=== PATIENT | male | born 1935 | race Caucasian/White ===

== ENCOUNTER → 2016-07-08 | Outpatient (REF) | payer MEDICARE, BC ==
[~2016-07-08] MED LIST: ACET65TA; BACT800T; EUCELOT2; FERROUS SULFATE; LOPR50TA; LOPRESSER; MILKSUS; No Historical Meds; SENO8.6T5; THERGRAN; TUMS; TUMS500C; VICO5TAB; VITA500C
== END ==
LOC: M LAB REF 16:36
PROVIDERS: ATTEND Internal Medicine
DX: M19.90 Unspecified osteoarthritis, unspecified site (principal); I87.2 Venous insufficiency (chronic) (peripheral)

== ENCOUNTER → 2018-11-25 | Outpatient (REF) | payer MEDICARE, BC | LOC: M LAB REF 16:59 | PROVIDERS: ATTEND Internal Medicine | DX: R74.8 Abnormal levels of other serum enzymes (principal) ==

== ENCOUNTER → 2018-11-26 | Outpatient (REF) | payer MEDICARE, BC | LOC: M LAB REF 07:29 | PROVIDERS: ATTEND Internal Medicine | DX: R19.7 Diarrhea, unspecified (principal) ==

== ENCOUNTER 2018-12-18 14:41 | Inpatient (IN) | payer MEDICARE, BC ==
[~2018-12-18] VITALS: Ht 188 cm; Wt 110.6 kg
[2018-12-18] MEDS ORDERED: DILUENT IV ONE (15:15)
[2018-12-18] MEDS ORDERED: NS IV ONE (15:15)
[2018-12-18 15:21] LABS: BASO % 0.2 % (0.0-1.0); EOS % 0.1 % (0.0-3.0); HEMATOCRIT 41.7 % (42.0-52.0); HEMOGLOBIN 13.9 g/dl (13.5-17.5); LYMPH % 2.3 % (24.0-44.0); MEAN CORPUSCULAR HEMOGLOBIN 32.3 pg (27.0-33.0); MEAN CORPUSCULAR HGB CONC 33.3 g/dl (32.0-36.5); MEAN CORPUSCULAR VOLUME 96.8 fl (80.0-96.0); MONO # 0.2 10^3/uL (0.0-0.8); MONO % 2.3 % (0.0-5.0); NEUTROPHILS # 9.1 10^3/uL (1.8-7.7); NEUTROPHILS % 94.7 % (36.0-66.0); PLATELET COUNT, AUTOMATED 156 10^3/uL (150-450); RED BLOOD COUNT 4.31 10^6/uL (4.30-6.10); WHITE BLOOD COUNT 9.6 10^3/uL (4.0-10.0)
[2018-12-18 15:32] LABS: INR 1.2; PROTHROMBIN TIME 14.9 SECONDS (11.8-14.0)
[2018-12-18 15:33] LABS: PARTIAL THROMBOPLASTIN TIME 31.7 SECONDS (25.0-38.4)
[2018-12-18] MEDS ORDERED: cefTRIAXone SOD 2 GM in D5W MINI-BAG PLUS 50 ML IV ONE (15:45)
[2018-12-18 15:46] LABS: LYMPH # 0.2 10^3/uL (1.5-4.5)
--- NOTE | 2018-12-18 15:46 | ECGEPIP ---
[facility] [place] - ED Test Date: 2018-12-18 Pat Name: BLANCA BROCK Department: Room: - Gender: Male Gastroenterology Teacher: yaritza : 1935 Requested By: Tameka Blancas PA-C Order Number: [id number] Reading MD: Megan Murray Measurements Intervals [place] Rate: 102 P: 100 MO: 178 QRS: 48 QRSD: 88 T: 56 QT: 305 QTc: 397 Interpretive Statements SINUS TACHYCARDIA WITH FREQUENT SUPRAVENTRICULAR PREMATURE COMPLEXES ABNORMAL RHYTHM ECG INCREASED RATE 12/10/14 Electronically Signed on 12-18-2018 15:46:00 EDT by Megan Murray
[2018-12-18 15:47] LABS: ALBUMIN 2.8 GM/DL (3.2-5.2); ALT/SGPT 55 U/L (12-78); AMYLASE 24 U/L (25-115); BILIRUBIN,DIRECT 5.4 MG/DL (0.0-0.2); BILIRUBIN,TOTAL 6.1 MG/DL (0.2-1.0); BLOOD UREA NITROGEN 19 MG/DL (7-18); CALCIUM LEVEL 9.1 MG/DL (8.8-10.2); CARBON DIOXIDE LEVEL 23 MEQ/L (21-32); CHLORIDE LEVEL 108 MEQ/L (98-107); CK-MB VALUE MASS < 1.0 NG/ML (<3.6); CPK CREATINE PHOSPHOKINASE 20 U/L (39-308); CREATININE FOR GFR 1.23 MG/DL (0.70-1.30); GLOMERULAR FILTRATION RATE > 60.0 (>35); GLUCOSE, FASTING 79 MG/DL (70-100); POTASSIUM SERUM 3.6 MEQ/L (3.5-5.1); SODIUM LEVEL 139 MEQ/L (136-145); TOTAL PROTEIN 6.3 GM/DL (6.4-8.2); TROPONIN I < 0.02 NG/ML (< 0.10)
--- NOTE | 2018-12-18 15:51 | REP ---
Clinical: Sepsis. Shock. Comparison: 12/10/2014. Findings: Examination is limited by portable technique and underpenetration. Stable cardiomegaly is again appreciated along with stable COPD/emphysematous disease and chronic interstitial changes. No focal consolidation. No effusion. No pneumothorax. Skeletal structures demonstrate degenerative changes primarily involving the right shoulder and thoracic spine. Impression: Chronic stable cardiomegaly and diffuse chronic changes. No obvious acute process. Electronically Signed by Se Yap MD 12/18/2018 03:43 P
[2018-12-18] MEDS ORDERED: FINA5TAB2 PO (16:02)
[2018-12-18] MEDS ORDERED: ACET-897 PO (16:02)
[2018-12-18] MEDS ORDERED: D-10TAB3 PO (16:02)
[2018-12-18] MEDS ORDERED: OXYB10TA PO (16:02)
[2018-12-18] MEDS ORDERED: TUMS500C PO (16:02)
[2018-12-18] MEDS ORDERED: FLOM0.4C39 PO (16:02)
[2018-12-18] MEDS ORDERED: VITMTA PO (16:02)
[2018-12-18] MEDS ORDERED: ISOVUE-370 76% 100ML VIAL (Q9967) As Ordered ONE (16:11)
--- NOTE | 2018-12-18 16:50 | REP ---
Clinical: Jaundice and history of hepatitis. Technique: Axial contrast enhanced images from the lung bases to the pubic symphysis using 100 ml Isovue 370 intravenous contrast material with precontrast and delayed images of the abdomen. Comparison: 12/01/2018. Findings: Extensive intrahepatic and extrahepatic biliary ductal dilatation is appreciated and obstructing material is identified within the distal common bile duct. The gallbladder is distended and mild pericholecystic fluid and inflammatory changes are also noted. Liver includes stable 1 cm cyst in the medial left lobe adjacent to the gallbladder fossa. Spleen, left adrenal gland appear normal. 2.8 cm cystic lesion in the mid pancreatic body cannot be excluded. Right adrenal gland demonstrates atrophy and calcification suggesting prior insult. Right kidney demonstrates medial cortical scarring with calcifications and 1.7 cm enhancing round lesion warranting further investigation to exclude renal mass. The enteric system is without obstruction or acute inflammatory process. Diffuse colonic and sigmoid diverticulosis noted without acute diverticulitis. Evaluation of the pelvis demonstrates relatively normal bladder. The prostate gland is mildly enlarged and demonstrates mass effect at the base of the bladder. No ascites. No free air. Scattered mesenteric and retroperitoneal lymph nodes are nonspecific. IVC filter identified. Atherosclerotic changes of the aorta and vasculature without aneurysm. Osseous structures demonstrate age-related degenerative changes. Lung bases demonstrate chronic COPD/emphysematous disease and bibasilar scarring. Impression: 1. Increasing intrahepatic and extrahepatic biliary ductal dilatation with obstructing material identified in the common bile duct. Differential diagnosis includes choledocholithiasis and possible biliary neoplasm. 2. Cystic mass in the mid body of the pancreas cannot exclude neoplasm. 3. Enhancing right renal lesion suspicious for neoplasm. 4. Diverticulosis without acute diverticulitis. 5. Nonspecific abdominal and retroperitoneal lymph nodes. 6. Further chronic changes as above. No ascites. Electronically Signed by Se Yap MD 12/18/2018 04:41 P
--- NOTE | 2018-12-18 18:48 | REPVR ---
EXAM: US Abdomen Limited, Right Upper Quadrant EXAM DATE/TIME: 12/18/2018 4:56 PM CLINICAL HISTORY: 83 years old, male; Other: Jaundice, hepatitis TECHNIQUE: Imaging protocol: Real-time ultrasound of the abdomen with image documentation. Examination was focused on the right upper quadrant. COMPARISON: CT ABD PELVIS W/O FOL BY WALLACE 12/18/2018 4:17 PM FINDINGS: Liver: There is the right hepatic lobe cyst adjacent to the gallbladder fossa measuring 1.5 cm. The intrahepatic bile ducts are dilated. On a single image the liver contour appears slightly nodular of uncertain significance. Gallbladder: The gallbladder is distended measuring 10.7 x 5.9 x 5.0 cm. Gallbladder sludge as well as echogenic gallstones. There is irregular gallbladder wall thickening. Gallbladder wall measurements of 1.2 and 0.7 cm. Common bile duct: The common bile duct is dilated measuring up to 14.5 mm. Pancreas: The pancreas was not visualized due to overlying bowel gas. Right kidney: Right kidney measures 11.7 cm in length. No hydronephrosis. IMPRESSION: 1. Irregular gallbladder wall thickening. Cholecystitis is possible. Gallbladder neoplasm or cholecystosis are other considerations. Please correlate with the clinical scenario. 2. Gallbladder distention with sludge as well as stones. 3. Significant biliary dilatation again demonstrated. 4. Suggest MRCP for further evaluation, as needed. Electronically signed by: Norma Livingston On 12/18/2018 18:47:46 PM
[2018-12-18] MEDS ORDERED: NS 1,000 ML IV ONE (20:00)
[2018-12-18] MEDS ORDERED: IBUPROFEN 600 MG TAB PO PRN (20:00)
[2018-12-18 20:23] LABS: APPEARANCE, URINE CLEAR (CLEAR); BACTERIA, URINE AUTO NEGATIVE (NEGATIVE); BILIRUBIN, URINE AUTO 1+ (NEGATIVE); BLOOD, URINE BLOOD NEGATIVE (NEGATIVE); COLOR, URINE AMBER (YELLOW); GLUCOSE, URINE (UA) AUTO NEGATIVE (NEGATIVE); KETONE, URINE AUTO NEGATIVE (NEGATIVE); LEUKOCYTE ESTERASE, URINE AUTO NEGATIVE (NEGATIVE); MUCUS, URINE SMALL (NEGATIVE); NITRITE, URINE AUTO NEGATIVE (NEGATIVE); PROTEIN, URINE AUTO NEGATIVE (NEGATIVE); RBC, URINE AUTO 2 /HPF (0-3); SPECIFIC GRAVITY URINE AUTO 1.056 (1.002-1.035); SQUAMOUS EPITHELIAL CELL UR AU 0 /HPF (0-6); WBC, URINE AUTO 3 /HPF (0-3)
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
[2018-12-18 22:00] VITALS: BP 132/86
[2018-12-18] MEDS: D5W/0.9% SODIUM CHLORIDE 1,000 ML IV SCH (22:13)
[2018-12-18] MEDS: PIPERACILLIN/TAZOBACTAM SOD 3.375 GM in D5W MINI-BAG PLUS 50 ML IV SCH (22:23)
[2018-12-18] MEDS: FINASTERIDE 5 MG TAB PO SCH (22:23)
[2018-12-18 23:59] VITALS: BP 126/67
[2018-12-19] VITALS (8 sets, daily range): BP systolic 114–146; BP diastolic 57–76
[2018-12-19] MEDS: PIPERACILLIN/TAZOBACTAM SOD 3.375 GM in D5W MINI-BAG PLUS 50 ML IV SCH ×4 (04:57→22:18)
[2018-12-19 07:45] LABS: BASO % 0.2 % (0.0-1.0); EOS % 0.1 % (0.0-3.0); LYMPH # 1.3 10^3/uL (1.5-4.5); LYMPH % 9.3 % (24.0-44.0); MEAN CORPUSCULAR HEMOGLOBIN 32.9 pg (27.0-33.0); MEAN CORPUSCULAR HGB CONC 33.1 g/dl (32.0-36.5); MEAN CORPUSCULAR VOLUME 99.4 fl (80.0-96.0); MONO # 0.9 10^3/uL (0.0-0.8); MONO % 6.5 % (0.0-5.0); NEUTROPHILS % 83.3 % (36.0-66.0); PLATELET COUNT, AUTOMATED 149 10^3/uL (150-450); RED BLOOD COUNT 3.62 10^6/uL (4.30-6.10); WHITE BLOOD COUNT 14.4 10^3/uL (4.0-10.0)
[2018-12-19 07:48] LABS: HEMOGLOBIN 11.9 g/dl (13.5-17.5)
[2018-12-19 07:58] LABS: ALBUMIN 2.2 GM/DL (3.2-5.2); ALT/SGPT 47 U/L (12-78); BLOOD UREA NITROGEN 17 MG/DL (7-18); CALCIUM LEVEL 8.6 MG/DL (8.8-10.2); CARBON DIOXIDE LEVEL 21 MEQ/L (21-32); CHLORIDE LEVEL 115 MEQ/L (98-107); CREATININE FOR GFR 0.91 MG/DL (0.70-1.30); GLOMERULAR FILTRATION RATE > 60.0 (>35); GLUCOSE, FASTING 102 MG/DL (70-100); SODIUM LEVEL 141 MEQ/L (136-145); TOTAL PROTEIN 5.8 GM/DL (6.4-8.2)
[2018-12-19] MEDS: D5W/0.9% SODIUM CHLORIDE 1,000 ML IV SCH ×2 (10:11→20:07)
[2018-12-19] MEDS ORDERED: ISOVUE-300 61% 50ML VIAL (Q9967) As Ordered ONE ×2 (16:26→17:13)
[2018-12-19] MEDS ORDERED: PHENYLEPHRINE INJ 10MG/ML VIAL (J2370) As Ordered ONE (17:18)
[2018-12-19] MEDS ORDERED: GLUCAGON FOR INJ 1 MG VIAL (J1610) As Ordered ONE (17:25)
--- NOTE | 2018-12-19 17:44 | IPNPDOC ---
Subjective Date Seen The patient was seen on 12/19/18. Subjective Chief Complaint/HPI 83m with hx of bph who presented with rigors and was found to have obstructive jaundice pt without complaint a full ROS was performed and negative except as above Objective Physical Examination General Exam: Positive: Alert, Cooperative, No Acute Distress Eye Exam: Positive: PERRLA, Conjunctiva & lids normal, EOMI; Negative: Sclera icteric ENT Exam: Positive: Atraumatic, Mucous membr. moist/pink, Pharynx Normal Neck Exam: Positive: Supple; Negative: JVD, thyromegaly Chest Exam: Positive: Clear to auscultation, Normal air movement Heart Exam: Positive: Rate Normal, Regular Rhythm, Normal S1, Normal S2; Negative: Murmurs, Rubs Telemetry: Positive: No significant arrhythmia Abdomen Exam: Positive: Normal bowel sounds, Soft; Negative: Tenderness, Hepatospenomegaly Extremity Exam: Negative: Clubbing, Cyanosis, Edema Assessment /Plan Assessment 83m p/w obstructive jaundice biliary obstruction concern for malignancy ERCP today on zosyn bili improved today will check ca 19-9 if no pathology established from ercp may need biopsy of pancreatic lesion bph continue flomax Plan/VTE VTE Prophylaxis Ordered?: Yes VS, I&O, 24H, Fishbone Vital Signs/I&O Vital Signs Date Time Temp Pulse Resp B/P (MAP) Pulse Ox O2 Delivery O2 Flow Rate FiO2 12/19/18 12:00 96.5 50 18 136/65 (88) 96 12/18/18 21:44 Room Air I&O- Last 24 Hours up to 6 AM 12/19/18 06:00 Intake Total 4960 ml Output Total 1150 ml Balance 3810 ml Laboratory Data 24H LABS Laboratory Tests 2 12/18/18 20:01: Urine Appearance CLEAR, Urine Color JOANNA, Urine pH 5.0, Urine Specific [place] 1.056, Urine Protein NEGATIVE, Urine Glucose (UA) NEGATIVE, Urine Ketones NEGATIVE, Urine Urobilinogen 2.0H, Urine Bilirubin 1+H, Urine Leukocyte Esterase NEGATIVE, Urine Blood NEGATIVE, Urine Nitrite NEGATIVE, Urine WBC (Auto) 3, Urine RBC (Auto) 2, Urine Hyaline Casts (Auto) 0, Urine Bacteria (Auto) NEGATIVE, Urine Squamous Epithelial Cells 0, Urine Mucus (Auto) SMALL, Urine Sperm (Auto) 12/18/18 20:02: Lactic Acid Followup at 4 Hours 1.3 12/19/18 07:04: Immature Granulocyte % (Auto) 0.6, White Blood Count 14.4H, Red Blood Count 3.62L, Hemoglobin 11.9#L, Hematocrit 36.0L, Mean Corpuscular Volume 99.4H, Mean Corpuscular Hemoglobin 32.9, Mean Corpuscular Hemoglobin Concent 33.1, Red Cell Distribution Width 14.7H, Platelet Count 149L, Neutrophils (%) (Auto) 83.3H, Lymphocytes (%) (Auto) 9.3L, Monocytes (%) (Auto) 6.5H, Eosinophils (%) (Auto) 0.1, Basophils (%) (Auto) 0.2, Neutrophils # (Auto) 12.0H, Lymphocytes # (Auto) 1.3L, Monocytes # (Auto) 0.9H, Eosinophils # (Auto) 0.0, Basophils # (Auto) 0.0, Nucleated Red Blood Cells % (auto) 0.0, Anion Gap 5L, Glomerular Filtration Rate > 60.0, Blood Urea Nitrogen 17, Creatinine 0.91, Sodium Level 141, Potassium Level 4.0, Chloride Level 115H, Carbon Dioxide Level 21, Calcium Level 8.6L, Aspartate Amino Transf (AST/SGOT) 58H, Alanine Aminotransferase (ALT/SGPT) 47, Alkaline Phosphatase 308H, Total Bilirubin 3.0#H, Total Protein 5.8L, Albumin 2.2#L, C-Reactive Protein, Quantitative 18.60H, Albumin/Globulin Ratio 0.61L CBC/BMP Laboratory Tests 12/19/18 07:04 Red Blood Count 3.62 L, Mean Corpuscular Volume 99.4 H, Mean Corpuscular Hemoglobin 32.9, Mean Corpuscular Hemoglobin Concent 33.1, Red Cell Distribution Width 14.7 H, Neutrophils (%) (Auto) 83.3 H, Lymphocytes (%) (Auto) 9.3 L, Monocytes (%) (Auto) 6.5 H, Eosinophils (%) (Auto) 0.1, Basophils (%) (Auto) 0.2, Neutrophils # (Auto) 12.0 H, Lymphocytes # (Auto) 1.3 L, Monocytes # (Auto) 0.9 H, Eosinophils # (Auto) 0.0, Basophils # (Auto) 0.0, Calcium Level 8.6 L, Aspartate Amino Transf (AST/SGOT) 58 H, Alanine Aminotransferase (ALT/SGPT) 47, Alkaline Phosphatase 308 H, Total Bilirubin 3.0 #H, Total Protein 5.8 L, Albumin 2.2 #L Microbiology Microbiology 12/18/18 Blood Culture - Preliminary, Resulted No growth after 24 hours . All specim... 12/18/18 Blood Culture - Preliminary, Resulted No growth after 24 hours . All specim... RAGHAVENDRA BONNER MD Dec 19, 2018 17:44
[2018-12-19] MEDS ORDERED: SUGAMMADEX SODIUM 500 MG/5 ML VIAL (BRIDION) As Ordered ONE (18:28)
[2018-12-19] MEDS ORDERED: ROCURONIUM BROMIDE 50 MG/5 ML VIAL As Ordered ONE (18:28)
[2018-12-19] MEDS ORDERED: LIDOCAINE 2% INJ 100 MG/5 ML SDV (FOR ANES.) As Ordered ONE (18:28)
[2018-12-19] MEDS ORDERED: fentaNYL 100 MCG/2 ML INJECTION (J3010) As Ordered ONE (18:28)
[2018-12-19] MEDS ORDERED: ONDANSETRON 4MG/2ML VIAL (J2405) As Ordered ONE (18:28)
[2018-12-19] MEDS ORDERED: PROPOFOL 200 MG/20 ML VIAL As Ordered ONE (18:28)
[2018-12-19] MEDS ORDERED: dexameTHASONE 4 MG/ML 1ML VIAL (J1100) As Ordered ONE (18:28)
[2018-12-19] MEDS ORDERED: ONDANSETRON 4MG/2ML VIAL (J2405) IV PRN (18:30)
[2018-12-19] MEDS ORDERED: oxyCODONE 5MG TAB PO PRN (18:30)
[2018-12-19] MEDS ORDERED: fentaNYL 100 MCG/2 ML INJECTION (J3010) IV PRN (18:30)
[2018-12-19] MEDS ORDERED: LR 1,000 ML IV SCH (18:30)
[2018-12-19] MEDS: URSODIOL 300 MG CAP PO SCH (20:10)
[2018-12-19] MEDS: FINASTERIDE 5 MG TAB PO SCH (20:10)
[2018-12-19] MEDS: TAMSULOSIN 0.4 MG CAP PO SCH (20:10)
[2018-12-20] MEDS: PIPERACILLIN/TAZOBACTAM SOD 3.375 GM in D5W MINI-BAG PLUS 50 ML IV SCH ×4 (03:44→21:55)
[2018-12-20 04:00] VITALS: BP 124/67
[2018-12-20 05:55] LABS: BASO % 0.2 % (0.0-1.0); HEMATOCRIT 37.2 % (42.0-52.0); HEMOGLOBIN 12.3 g/dl (13.5-17.5); LYMPH % 9.4 % (24.0-44.0); MEAN CORPUSCULAR HEMOGLOBIN 32.5 pg (27.0-33.0); MEAN CORPUSCULAR HGB CONC 33.1 g/dl (32.0-36.5); MEAN CORPUSCULAR VOLUME 98.2 fl (80.0-96.0); MONO # 0.7 10^3/uL (0.0-0.8); MONO % 6.9 % (0.0-5.0); NEUTROPHILS # 8.8 10^3/uL (1.8-7.7); NEUTROPHILS % 83.1 % (36.0-66.0); PLATELET COUNT, AUTOMATED 172 10^3/uL (150-450); RED BLOOD COUNT 3.79 10^6/uL (4.30-6.10); WHITE BLOOD COUNT 10.6 10^3/uL (4.0-10.0)
[2018-12-20 06:14] LABS: ALBUMIN 2.2 GM/DL (3.2-5.2); ALT/SGPT 47 U/L (12-78); BILIRUBIN,TOTAL 1.8 MG/DL (0.2-1.0); BLOOD UREA NITROGEN 18 MG/DL (7-18); CALCIUM LEVEL 8.6 MG/DL (8.8-10.2); CARBON DIOXIDE LEVEL 23 MEQ/L (21-32); CHLORIDE LEVEL 118 MEQ/L (98-107); CREATININE FOR GFR 0.83 MG/DL (0.70-1.30); GLOMERULAR FILTRATION RATE > 60.0 (>35); GLUCOSE, FASTING 115 MG/DL (70-100); POTASSIUM SERUM 4.3 MEQ/L (3.5-5.1); SODIUM LEVEL 145 MEQ/L (136-145); TOTAL PROTEIN 6.1 GM/DL (6.4-8.2)
[2018-12-20 08:00] VITALS: BP 148/70
[2018-12-20] MEDS: URSODIOL 300 MG CAP PO SCH ×2 (08:32→21:56)
[2018-12-20] MEDS: TAMSULOSIN 0.4 MG CAP PO SCH (08:32)
[2018-12-20] MEDS: D5W/0.9% SODIUM CHLORIDE 1,000 ML IV SCH ×3 (08:33→21:55)
[2018-12-20 08:51] LABS: LIPASE 124 U/L (73-393)
--- NOTE | 2018-12-20 09:06 | IPNPDOC ---
Text Note Date of Service The patient was seen on 12/20/18. NOTE Subjective: Patient seen and examined at bedside. No acute overnight events reported. No new medical complaints this morning. 8 beats VT noted, patient asymptomatic. Objective: General: NAD, lying comfortably in bed HEENT: NC/AT, EOMI, PERRL Lungs: CTA B/L Heart: +S1S2, RRR Abd: soft, NT, +BS A/P: 83 yo male for choledocholithiasis s/p ERCP POD #1 #biliary obstruction - choledocholithiasis vs neoplasm - s/p ERCP - watch for pancreatitis - lipase WNL, no symptoms - follow as per GI - concern for malignancy - zosyn - CEA, ca 19-9 pending - if no pathology established from ercp may need biopsy of pancreatic lesion #bph - continue flomax #pancreatic/renal lesions - concerns for possible malignancy #DVT prophylaxis Dispo: PT, GI f/u VS,Fishbone, I+O VS, Fishbone, I+O Laboratory Tests 12/20/18 05:26 Red Blood Count 3.79 L, Mean Corpuscular Volume 98.2 H, Mean Corpuscular Hemoglobin 32.5, Mean Corpuscular Hemoglobin Concent 33.1, Red Cell Distribution Width 14.9 H, Neutrophils (%) (Auto) 83.1 H, Lymphocytes (%) (Auto) 9.4 L, Monocytes (%) (Auto) 6.9 H, Eosinophils (%) (Auto) 0.0, Basophils (%) (Auto) 0.2, Neutrophils # (Auto) 8.8 H, Lymphocytes # (Auto) 1.0 L, Monocytes # (Auto) 0.7, Eosinophils # (Auto) 0.0, Basophils # (Auto) 0.0, Calcium Level 8.6 L, Aspartate Amino Transf (AST/SGOT) 48 H, Alanine Aminotransferase (ALT/SGPT) 47, Alkaline Phosphatase 285 H, Total Bilirubin 1.8 H, Total Protein 6.1 L, Albumin 2.2 L Vital Signs Date Time Temp Pulse Resp B/P (MAP) Pulse Ox O2 Delivery O2 Flow Rate FiO2 12/20/18 08:00 97.1 60 20 148/70 (96) 99 12/18/18 21:44 Room Air I&O- Last 24 Hours up to 6 AM 12/20/18 06:00 Intake Total 3420 ml Output Total 1100 ml Balance 2320 ml ELLIOTT WAHL MD Dec 20, 2018 09:06
--- NOTE | 2018-12-20 09:14 | REP ---
C-ARM VIEWS DURING ERCP: Multiple C-arm views are performed during ERCP. There is injection of contrast into a dilated common bile duct which contains a calculus. Contrast flows into the gallbladder and also opacifies dilated intrahepatic ducts. Catheter manipulation is performed. A common bile duct stent is placed distally. 8 minutes 57 seconds fluoroscopy time utilized. Electronically Signed by Bryn Davis MD 12/20/2018 07:15 P
[2018-12-20 10:26] LABS: CA19-9 TUMOR MARKER,CARBOHYDRA 451.6 U/ML (<35.0)
[2018-12-20 12:00] VITALS: BP 122/70
[2018-12-20 16:00] VITALS: BP 159/73
[2018-12-20 20:00] VITALS: BP 153/79
[2018-12-20 20:15] VITALS: BP 132/74
[2018-12-20] MEDS: FINASTERIDE 5 MG TAB PO SCH (21:55)
[2018-12-21 04:00] VITALS: BP 142/67
[2018-12-21] MEDS: PIPERACILLIN/TAZOBACTAM SOD 3.375 GM in D5W MINI-BAG PLUS 50 ML IV SCH ×2 (04:42→08:24)
[2018-12-21 06:07] LABS: BASO % 0.5 % (0.0-1.0); EOS # 0.2 10^3/uL (0.0-0.50); HEMATOCRIT 36.1 % (42.0-52.0); HEMOGLOBIN 11.9 g/dl (13.5-17.5); LYMPH # 1.7 10^3/uL (1.5-4.5); LYMPH % 20.2 % (24.0-44.0); MEAN CORPUSCULAR HEMOGLOBIN 32.6 pg (27.0-33.0); MEAN CORPUSCULAR VOLUME 98.9 fl (80.0-96.0); MONO # 0.6 10^3/uL (0.0-0.8); MONO % 6.8 % (0.0-5.0); NEUTROPHILS # 5.9 10^3/uL (1.8-7.7); NEUTROPHILS % 70.3 % (36.0-66.0); PLATELET COUNT, AUTOMATED 148 10^3/uL (150-450); RED BLOOD COUNT 3.65 10^6/uL (4.30-6.10); WHITE BLOOD COUNT 8.4 10^3/uL (4.0-10.0)
[2018-12-21 06:31] LABS: ALBUMIN 1.9 GM/DL (3.2-5.2); ALT/SGPT 39 U/L (12-78); BILIRUBIN,TOTAL 1.4 MG/DL (0.2-1.0); BLOOD UREA NITROGEN 15 MG/DL (7-18); CALCIUM LEVEL 8.6 MG/DL (8.8-10.2); CARBON DIOXIDE LEVEL 21 MEQ/L (21-32); CHLORIDE LEVEL 120 MEQ/L (98-107); CREATININE FOR GFR 0.81 MG/DL (0.70-1.30); GLOMERULAR FILTRATION RATE > 60.0 (>35); GLUCOSE, FASTING 97 MG/DL (70-100); LIPASE 118 U/L (73-393); POTASSIUM SERUM 3.9 MEQ/L (3.5-5.1); SODIUM LEVEL 146 MEQ/L (136-145); TOTAL PROTEIN 5.4 GM/DL (6.4-8.2)
[2018-12-21 08:00] VITALS: BP 137/65
[2018-12-21] MEDS: URSODIOL 300 MG CAP PO SCH (08:24)
[2018-12-21] MEDS: TAMSULOSIN 0.4 MG CAP PO SCH (08:24)
[2018-12-21] MEDS: D5W/0.9% SODIUM CHLORIDE 1,000 ML IV SCH (08:26)
--- NOTE | 2018-12-21 15:49 | DS.PDOC ---
Discharge Summary General Date of Admission Dec 18, 2018 at 19:56 Date of Discharge 12/21/18 Specialist/Consultants Involve: BUD MOTT MD Discharge Summary PROCEDURES PERFORMED DURING STAY: ERCP DISCHARGE DIAGNOSES: 1. biliary obstruction 2. pancreatic mass 3. bph COMPLICATIONS/CHIEF COMPLAINT: Hypotension, Jaundice. HISTORY OF PRESENT ILLNESS: 83 year old male came to the ED fro extreme weakness and shakiness. He was found to be hypotensive at 81/45. He was also noted to have painless jaundice, He was not febrile. As per he has lost 35 lbs between July and September 2018. He has also been having alteration of bowel habits with days of loose stools requiring imodium followed by constipation requiring prune juice for at least 2 months. He went to see his PMD 2 weeks ago because he has been very weak and will shakes. He had a CT abdomen done then and was told that he has a spot in pancreas, aspot in liver and a spot in right kidney . He has been referred to a pancreatic surgeon in [place] and has an appointment on 01/05/19. CT today in our ED showed Extensive intrahepatic and extrahepatic biliary ductal dilatation is appreciated and obstructing material is identified within the distal common bile duct. The gallbladder is distended and mild pericholecystic fluid and inflammatory changes are also noted. Liver includes stable 1 cm cyst in the medial left lobe adjacent to the gallbladder fossa. Spleen, left adrenal gland appear normal. 2.8 cm cystic lesion in the mid pancreatic body cannot be excluded. Right adrenal gland demonstrates atrophy and calcification suggesting prior insult. Right kidney demonstrates medial cortical scarring with calcifications and 1.7 cm enhancing round lesion warranting further investigation to exclude renal mass. There are mesentric and retroperitoneal lymphnodes. There is also an IVC filter present and Emphysematous changes in the lung bases. Patient admitted for obstructive jaundice due to CBD obstruction. HOSPITAL COURSE: . DISCHARGE MEDICATIONS: Please see below. ALLERGIES: Please see below. PHYSICAL EXAMINATION ON DISCHARGE: VITAL SIGNS: Please see below. GENERAL: HEENT: NECK: CARDIOVASCULAR EXAMINATION: RESPIRATORY EXAMINATION: ABDOMINAL EXAMINATION: EXTREMITIES: SKIN: NEUROLOGICAL EXAMINATION: PSYCHIATRIC EXAMINATION: LABORATORY DATA: Please see below. IMAGING: PROGNOSIS: ACTIVITY: [As tolerated]. DIET: DISCHARGE PLAN: DISPOSITION: . DISCHARGE INSTRUCTIONS: 1. . ITEMS TO FOLLOWUP ON ON OUTPATIENT: 1. . DISCHARGE CONDITION: [Stable]. TIME SPENT ON DISCHARGE: Greater than minutes. Vital Signs/I&Os Vital Signs Date Time Temp Pulse Resp B/P (MAP) Pulse Ox O2 Delivery O2 Flow Rate FiO2 12/21/18 08:00 97.6 55 20 137/65 (89) 100 12/18/18 21:44 Room Air I&O- Last 24 Hours up to 6 AM 12/21/18 06:00 Intake Total 3450 ml Output Total 775 ml Balance 2675 ml Laboratory Data Labs 24H Laboratory Tests 2 12/21/18 05:40: Immature Granulocyte % (Auto) 0.2, White Blood Count 8.4, Red Blood Count 3.65L, Hemoglobin 11.9L, Hematocrit 36.1L, Mean Corpuscular Volume 98.9H, Mean Corpuscular Hemoglobin 32.6, Mean Corpuscular Hemoglobin Concent 33.0, Red Cell Distribution Width 14.8H, Platelet Count 148L, Neutrophils (%) (Auto) 70.3H, Lymphocytes (%) (Auto) 20.2L, Monocytes (%) (Auto) 6.8H, Eosinophils (%) (Auto) 2.0, Basophils (%) (Auto) 0.5, Neutrophils # (Auto) 5.9, Lymphocytes # (Auto) 1.7, Monocytes # (Auto) 0.6, Eosinophils # (Auto) 0.2, Basophils # (Auto) 0.0, Nucleated Red Blood Cells % (auto) 0.0, Anion Gap 5L, Glomerular Filtration Rate > 60.0, Blood Urea Nitrogen 15, Creatinine 0.81, Sodium Level 146H, Potassium Level 3.9, Chloride Level 120H, Carbon Dioxide Level 21, Calcium Level 8.6L, Aspartate Amino Transf (AST/SGOT) 32, Alanine Aminotransferase (ALT/SGPT) 39, Alkaline Phosphatase 235H, Total Bilirubin 1.4H, Total Protein 5.4L, Albumin 1.9L, Albumin/Globulin Ratio 0.54L, Lipase 118 CBC/BMP Laboratory Tests 12/21/18 05:40 Red Blood Count 3.65 L, Mean Corpuscular Volume 98.9 H, Mean Corpuscular Hemoglobin 32.6, Mean Corpuscular Hemoglobin Concent 33.0, Red Cell Distribution Width 14.8 H, Neutrophils (%) (Auto) 70.3 H, Lymphocytes (%) (Auto) 20.2 L, Monocytes (%) (Auto) 6.8 H, Eosinophils (%) (Auto) 2.0, Basophils (%) (Auto) 0.5, Neutrophils # (Auto) 5.9, Lymphocytes # (Auto) 1.7, Monocytes # (Auto) 0.6, Eosinophils # (Auto) 0.2, Basophils # (Auto) 0.0, Calcium Level 8.6 L, Aspartate Amino Transf (AST/SGOT) 32, Alanine Aminotransferase (ALT/SGPT) 39, Alkaline Phosphatase 235 H, Total Bilirubin 1.4 H, Total Protein 5.4 L, Albumin 1.9 L Microbiology Microbiology 12/18/18 Blood Culture - Preliminary, Resulted No Growth after 72 hours. All specime... 12/18/18 Blood Culture - Preliminary, Resulted No Growth after 72 hours. All specime... Discharge Medications Scheduled Acetaminophen (Tylenol Extra Strength) 500 Mg Tablet, 1,000 MG PO BID, (Reported) Calcium Carbonate (Tums) 200 Mg Tab.chew, 1,000 MG PO BID, (Reported) Cholecalciferol (Vitamin D3) (Vitamin D3) 1,000 Unit Tablet, 1,000 UNIT PO GINA Y, (Reported) Finasteride (Finasteride) 5 Mg Tablet, 5 MG PO QHS, (Reported) Multivitamins (Thera M Plus Tablet) 1 Each Tablet, 1 TAB PO DAILY, (Reported) Oxybutynin Chloride (Oxybutynin Chloride ER) 10 Mg Tab.er.24, 10 MG PO DAILY, (Reported) Tamsulosin HCl (Flomax) 0.4 Mg Capsule, 0.4 MG PO DAILY, (Reported) Allergies Coded Allergies: aspirin (Verified Allergy, Unknown, 12/18/18) PATIENT AND DO NOT BELIEVE THIS IS AN ALLERGY. ELLIOTT WAHL MD Dec 21, 2018 15:49
== END 2018-12-21 17:00 | disposition home or self-care (01) | DRG 446 ==
LOC: M ED 14:41 → M ED INP 19:56 → M PCU 21:55
PROVIDERS: ADMIT Internal Medicine Nephrology; ATTEND Hospitalist
PROC: 0F798DZ Dilation of Common Bile Duct with Intraluminal Device, Via Natural or Artificial Opening Endoscopic (ICD-10-PCS; principal; 2018-12-19 16:00)
DX: K80.51 Calculus of bile duct without cholangitis or cholecystitis with obstruction (principal); I95.9 Hypotension, unspecified; E86.0 Dehydration; K86.89 Other specified diseases of pancreas; Z79.899 Other long term (current) drug therapy; Z88.6 Allergy status to analgesic agent; M19.90 Unspecified osteoarthritis, unspecified site; N40.0 Benign prostatic hyperplasia without lower urinary tract symptoms

== ENCOUNTER → 2019-01-27 | Outpatient (REF) | payer MEDICARE, BC ==
[~2019-01-27] MED LIST changes: +ACET-897 PO; +D-10TAB3 PO; +FINA5TAB2 PO; +FLOM0.4C39 PO; +OXYB10TA2 PO; +TUMS500C PO; +VITMTA PO
== END ==
LOC: M LAB REF 16:46
PROVIDERS: ATTEND Internal Medicine
DX: C25.3 Malignant neoplasm of pancreatic duct (principal)

== ENCOUNTER → 2019-12-06 | Outpatient (REF) | payer MEDICARE, BC ==
[~2019-12-06] MED LIST changes: -OXYB10TA2 PO; +OXYB10TA23 PO
[2019-12-06 13:19] LABS: CREATININE FOR GFR 1.15 MG/DL (0.70-1.30); GLOMERULAR FILTRATION RATE > 60.0 (>35)
== END ==
LOC: M LABDRWAD 12:27
PROVIDERS: ATTEND Radiology Radiation Oncology
DX: C22.1 Intrahepatic bile duct carcinoma (principal)

== ENCOUNTER → 2019-12-12 | Outpatient (CLI) | payer MEDICARE, BC ==
[~2019-12-12] MED LIST changes: +GASTROGRAFIN SOLUTION 30ML (Q9963) As Ordered ONE; +ISOVUE-370 76% 100ML VIAL As Ordered ONE
--- NOTE | 2020-02-05 09:35 | REP ---
CT OF THE ABDOMEN WITH IV AND ORAL CONTRAST: HISTORY: Cholangiocarcinoma, biliary tract. CONTRAST DOSE: 100 ml of intravenous Isovue 370 is administered. COMPARISON: CT study from 12/18/18. Report was delayed due to a malware attack on the facility. FINDINGS: Preliminary digital bingo usher radiograph demonstrates a Madhuri vena cava filter, clips in the right upper quadrant, vascular calcification and a normal bowel gas pattern. The lung bases are essentially clear. There are multiple old healed rib fractures. There is some bibasilar linear fibrosis. No focal hepatic mass lesion is seen. There is pneumobilia noted consistent with prior instrumentation or anastomosis. The gallbladder is surgically absent. The spleen is normal in size, homogeneous in texture. There is embolization coil material visible in the right renal hilus and there is significant atrophy of the posterior cortex of the right kidney. This is unchanged. There is a stable 1.7 cm nodule in the posterior aspect of the right kidney, unchanged from the comparison study of 12/18/18. There are 2 small intrarenal calculi in the left kidney, unchanged. There is a low density lesion in the body of the pancreas measuring 3.6 cm in greatest diameter. This measured 3.5 cm by my measurement previously. It is essentially unchanged. No retroperitoneal mass or adenopathy is seen. Left colonic diveritculosis is noted. No abdominal wall defect is seen in the upper abdomen. Vascular calcification is seen. No evidence of aortic aneurysm. No bony destructive lesion is appreciated. IMPRESSION: Stable 3.6 cm low density lesion in the body of the pancreas. Postoperative change and pneumobilia noted at the usama hepatis. Status post right renal embolization therapy with renal cortical atrophy and stable 1.7 cm right renal nodule. MTDD
== END ==
LOC: M RAD 12:02
PROVIDERS: ATTEND Radiology Radiation Oncology
DX: C24.9 Malignant neoplasm of biliary tract, unspecified (principal)
CPT/HCPCS: 74160; Q9963; Q9967

== ENCOUNTER → 2021-02-19 | Outpatient (CLI) | payer MEDICARE, BC ==
--- NOTE | 2021-02-19 14:01 | REP ---
INDICATION: CHOLANGIO CA. COMPARISON: Multiple the latest CT abdomen and 12/12/2019 TECHNIQUE: Standard helical technique before and after the intravenous administration of 100 cc Isovue 370. Oral bowel preparatory contrast was also administered prior to the exam. FINDINGS: A small possibly partially loculated right pleural effusion has developed since the last exam. The lung bases are otherwise unchanged. The pre contrast enhanced portion examination shows no significant change in appearance of the liver or spleen. A low-density pancreatic lesion is again identified having water density Hounsfield unit readings. Once again, there is a solid lesion arising from the inferior pole of the right kidney which is unchanged in size. The contrast-enhanced portion examination shows no evidence of an enhancing hepatic abnormality. There is pneumobilia status quo. The pancreatic cystic lesion seen previously is essentially unchanged compared to the 12/12/2019 exam, however, this gotten smaller compared to the next latest prior of 12/18/2018. Today its maximal dimension is approximately 2.9 cm where as on the 12/18/2018 exam it measured 3.5 cm. It is degree of enhancement does, however, appear to have increased. The enhancing right renal nodule seen on the prior exams is unchanged there are postoperative right renal changes status quo. There are no new right renal abnormalities. Left kidney stable. Note is again made of a tiny nonobstructing left nephrolith status quo. The abdominal aorta and para-aortic regions are essentially unchanged. No adenopathy has developed. Calcific atherosclerotic changes again identified. The tip of the inferior vena cava filter is again seen below the right renal vein. There is no significant change in appearance of the bowel loops or the mesenteries although obscured somewhat by respiratory motion artifact. There is sigmoid colon diverticulosis status quo. There is no significant change in appearance of the osseous structures IMPRESSION: 1. Primarily cystic pancreatic mass as described above. 2. Persistent pneumobilia without evidence of an enhancing hepatic mass. 3. Stable enhancing right renal nodule as described above. 4. Other findings and chronic changes as described above. <Electronically signed by Dat Guerrier > 02/19/21 [id number]
== END ==
LOC: M RAD 11:21
PROVIDERS: ATTEND Internal Medicine
DX: C22.1 Intrahepatic bile duct carcinoma (principal); D37.8 Neoplasm of uncertain behavior of other specified digestive organs
CPT/HCPCS: 74178; Q9963; Q9967

== ENCOUNTER → 2021-08-12 | Outpatient (CLI) | payer MEDICARE, BC ==
[~2021-08-12] MED LIST changes: -GASTROGRAFIN SOLUTION 30ML (Q9963) As Ordered ONE; -ISOVUE-370 76% 100ML VIAL As Ordered ONE; +VITA100093 PO
== END ==
LOC: M ADAMS 11:36
PROVIDERS: ATTEND Internal Medicine
DX: R53.1 Weakness (principal); R20.2 Paresthesia of skin; C22.1 Intrahepatic bile duct carcinoma

== ENCOUNTER → 2021-08-12 | Outpatient (REF) | payer MEDICARE, BC ==
[2021-08-12 17:15] LABS: ALBUMIN 3.6 GM/DL (3.2-5.2); ALT/SGPT 25 U/L (12-78); BILIRUBIN,TOTAL 0.5 MG/DL (0.2-1.0); BLOOD UREA NITROGEN 20 MG/DL (7-18); CARBON DIOXIDE LEVEL 30 MEQ/L (21-32); CHLORIDE LEVEL 111 MEQ/L (98-107); CREATININE FOR GFR 1.15 MG/DL (0.70-1.30); GLOMERULAR FILTRATION RATE > 60.0 (>35); GLUCOSE, FASTING 86 MG/DL (70-100); POTASSIUM SERUM 4.7 MEQ/L (3.5-5.1); SODIUM LEVEL 144 MEQ/L (136-145); TOTAL PROTEIN 6.8 GM/DL (6.4-8.2)
== END ==
LOC: M LABDRWAD 16:10
PROVIDERS: ATTEND Internal Medicine Medical Oncology
DX: C22.1 Intrahepatic bile duct carcinoma (principal)

== ENCOUNTER → 2021-08-18 | Outpatient (CLI) | payer MEDICARE, BC ==
[~2021-08-18] MED LIST changes: +GASTROGRAFIN SOLUTION 30ML (Q9963) As Ordered ONE; +ISOVUE-370 76% 100ML VIAL As Ordered ONE
== END ==
LOC: M RAD 10:47
PROVIDERS: ATTEND Internal Medicine Medical Oncology
DX: C22.1 Intrahepatic bile duct carcinoma (principal)
CPT/HCPCS: 71260; 74177; Q9963; Q9967

== ENCOUNTER → 2022-03-02 | Outpatient (CLI) | payer MEDICARE, BC ==
[~2022-03-02] MED LIST changes: -GASTROGRAFIN SOLUTION 30ML (Q9963) As Ordered ONE; -ISOVUE-370 76% 100ML VIAL As Ordered ONE
[2022-03-02 11:25] LABS: BASO # 0.1 10^3/uL (0.0-0.2); BASO % 0.7 % (0.0-1.0); EOS # 0.3 10^3/uL (0.0-0.5); EOS % 4.2 % (0.0-3.0); HEMATOCRIT 44.1 % (42.0-52.0); LYMPH # 1.5 10^3/uL (1.5-5.0); LYMPH % 22.4 % (24.0-44.0); MONO # 0.7 10^3/uL (0.0-0.8); MONO % 9.7 % (2.0-8.0); NEUTROPHILS # 4.3 10^3/uL (1.5-8.5); NEUTROPHILS % 62.9 % (36.0-66.0); PLATELET COUNT, AUTOMATED 151 10^3/uL (150-450); RED BLOOD COUNT 4.69 10^6/uL (4.30-6.10); WHITE BLOOD COUNT 6.9 10^3/uL (4.0-10.0)
[2022-03-02 12:14] LABS: ALBUMIN 3.5 GM/DL (3.2-5.2); ALT/SGPT 18 U/L (12-78); BILIRUBIN,TOTAL 0.5 MG/DL (0.2-1.0); BLOOD UREA NITROGEN 20 MG/DL (7-18); CALCIUM LEVEL 9.7 MG/DL (8.8-10.2); CARBON DIOXIDE LEVEL 28 MEQ/L (21-32); CHLORIDE LEVEL 108 MEQ/L (98-107); CREATININE FOR GFR 1.04 MG/DL (0.70-1.30); GLOMERULAR FILTRATION RATE > 60.0 (>35); GLUCOSE, FASTING 89 MG/DL (70-100); POTASSIUM SERUM 4.7 MEQ/L (3.5-5.1); SODIUM LEVEL 140 MEQ/L (136-145); TOTAL PROTEIN 6.9 GM/DL (6.4-8.2)
[2022-03-02 13:20] LABS: CA19-9 TUMOR MARKER,CARBOHYDRA 4.4 U/ML (<35.0)
== END ==
LOC: M LAB 10:14
PROVIDERS: ATTEND Internal Medicine Medical Oncology
DX: C22.1 Intrahepatic bile duct carcinoma (principal)

== ENCOUNTER → 2022-03-03 | Outpatient (CLI) | payer MEDICARE, BC ==
[~2022-03-03] MED LIST changes: +GASTROGRAFIN SOLUTION 30ML (Q9963) As Ordered ONE; +ISOVUE-370 76% 100ML VIAL As Ordered ONE
== END ==
LOC: M RAD 10:50
PROVIDERS: ATTEND Nurse Practitioner
DX: C22.1 Intrahepatic bile duct carcinoma (principal)
CPT/HCPCS: 71260; 74177; Q9963; Q9967

== ENCOUNTER → 2022-03-18 | Outpatient (CLI) | payer MEDICARE, BC ==
[~2022-03-18] MED LIST changes: -GASTROGRAFIN SOLUTION 30ML (Q9963) As Ordered ONE; -ISOVUE-370 76% 100ML VIAL As Ordered ONE
== END ==
LOC: M ADAMS 13:13
PROVIDERS: ATTEND Internal Medicine
DX: R60.0 Localized edema (principal); R05.9 Cough, unspecified

== ENCOUNTER → 2022-06-01 | Outpatient (CLI) | payer MEDICARE, BC ==
[2022-06-01 12:57] LABS: BASO % 0.6 % (0.0-1.0); EOS # 0.3 10^3/uL (0.0-0.5); EOS % 4.2 % (0.0-3.0); HEMATOCRIT 45.7 % (42.0-52.0); LYMPH # 1.6 10^3/uL (1.5-5.0); LYMPH % 25.3 % (24.0-44.0); MEAN CORPUSCULAR HEMOGLOBIN 31.8 pg (27.0-33.0); MEAN CORPUSCULAR HGB CONC 32.8 g/dl (32.0-36.5); MONO # 0.7 10^3/uL (0.0-0.8); MONO % 10.7 % (2.0-8.0); NEUTROPHILS # 3.6 10^3/uL (1.5-8.5); NEUTROPHILS % 58.9 % (36.0-66.0); PLATELET COUNT, AUTOMATED 153 10^3/uL (150-450); RED BLOOD COUNT 4.71 10^6/uL (4.30-6.10); WHITE BLOOD COUNT 6.2 10^3/uL (4.0-10.0)
[2022-06-01 13:21] LABS: ALBUMIN 3.7 G/DL (3.2-5.2); ALKALINE PHOSPHATASE 82 U/L (46-116); ALT/SGPT 14 U/L (7.0-40); AST/SGOT 22 U/L (<34); BILIRUBIN,TOTAL 0.5 MG/DL (0.3-1.2); BLOOD UREA NITROGEN 23 MG/DL (9-23); CALCIUM LEVEL 9.5 MG/DL (8.3-10.6); CARBON DIOXIDE LEVEL 27 MMOL/L (20-31); CHLORIDE LEVEL 108 MMOL/L (98-107); CREATININE FOR GFR 1.04 MG/DL (0.70-1.30); GLOMERULAR FILTRATION RATE > 60.0 (>35); GLUCOSE, FASTING 85 MG/DL (74-106); POTASSIUM SERUM 4.9 MMOL/L (3.5-5.1); SODIUM LEVEL 141 MMOL/L (136-145); TOTAL PROTEIN 6.6 G/DL (5.7-8.2)
[2022-06-01 13:40] LABS: CA19-9 TUMOR MARKER,CARBOHYDRA 4.3 U/ML (<35.0)
== END ==
LOC: M LABDRWAD 10:26
PROVIDERS: ATTEND Internal Medicine Medical Oncology
DX: C22.1 Intrahepatic bile duct carcinoma (principal)

== ENCOUNTER → 2022-08-05 | Outpatient (REF) | payer MEDICARE, BC | LOC: M LAB REF 16:49 | PROVIDERS: ATTEND Internal Medicine | DX: R53.1 Weakness (principal) ==

== ENCOUNTER → 2022-08-26 | Outpatient (CLI) | payer MEDICARE, BC ==
[2022-08-26 12:54] LABS: BASO # 0.1 10^3/uL (0.0-0.2); BASO % 0.7 % (0.0-1.0); EOS # 0.3 10^3/uL (0.0-0.5); EOS % 3.1 % (0.0-3.0); HEMATOCRIT 44.1 % (42.0-52.0); HEMOGLOBIN 14.7 g/dl (13.5-17.5); LYMPH # 1.9 10^3/uL (1.5-5.0); LYMPH % 19.7 % (24.0-44.0); MEAN CORPUSCULAR HEMOGLOBIN 32.1 pg (27.0-33.0); MEAN CORPUSCULAR HGB CONC 33.3 g/dl (32.0-36.5); MEAN CORPUSCULAR VOLUME 96.3 fl (80.0-96.0); MONO % 10.3 % (2.0-8.0); NEUTROPHILS # 6.2 10^3/uL (1.5-8.5); NEUTROPHILS % 65.2 % (36.0-66.0); PLATELET COUNT, AUTOMATED 149 10^3/uL (150-450); RED BLOOD COUNT 4.58 10^6/uL (4.30-6.10); WHITE BLOOD COUNT 9.4 10^3/uL (4.0-10.0)
[2022-08-26 13:20] LABS: ALBUMIN 3.6 G/DL (3.2-5.2); ALKALINE PHOSPHATASE 87 U/L (46-116); ALT/SGPT 16 U/L (7.0-40); AST/SGOT 20 U/L (<34); BILIRUBIN,TOTAL 0.5 MG/DL (0.3-1.2); BLOOD UREA NITROGEN 18 MG/DL (9-23); CALCIUM LEVEL 9.3 MG/DL (8.3-10.6); CARBON DIOXIDE LEVEL 26 MMOL/L (20-31); CHLORIDE LEVEL 110 MMOL/L (98-107); CREATININE FOR GFR 1.02 MG/DL (0.70-1.30); GLOMERULAR FILTRATION RATE > 60.0 (>35); GLUCOSE, FASTING 56 MG/DL (74-106); POTASSIUM SERUM 4.6 MMOL/L (3.5-5.1); SODIUM LEVEL 142 MMOL/L (136-145); TOTAL PROTEIN 6.5 G/DL (5.7-8.2)
[2022-08-26 13:47] LABS: CA19-9 TUMOR MARKER,CARBOHYDRA 6.7 U/ML (<35.0)
== END ==
LOC: M LABDRWAD 10:50
PROVIDERS: ATTEND Internal Medicine Medical Oncology
DX: C22.1 Intrahepatic bile duct carcinoma (principal)

== ENCOUNTER → 2022-09-03 | Outpatient (CLI) | payer MEDICARE, BC ==
[~2022-09-03] MED LIST changes: +GASTROGRAFIN SOLUTION 30ML As Ordered ONE; +ISOVUE-370 76% 100ML VIAL As Ordered ONE
== END ==
LOC: M RAD 10:42
PROVIDERS: ATTEND Nurse Practitioner
DX: C22.1 Intrahepatic bile duct carcinoma (principal)
CPT/HCPCS: 71260; 74177; Q9963; Q9967

== ENCOUNTER → 2022-11-16 | Outpatient (CLI) | payer MEDICARE, BC ==
[~2022-11-16] MED LIST changes: -GASTROGRAFIN SOLUTION 30ML As Ordered ONE; -ISOVUE-370 76% 100ML VIAL As Ordered ONE; +SERT50TA29
== END ==
LOC: M PLARAD 11:36
PROVIDERS: ATTEND Internal Medicine Hematology & Oncology
DX: C22.1 Intrahepatic bile duct carcinoma (principal)
CPT/HCPCS: 78815; A9552

== ENCOUNTER → 2023-02-26 | Outpatient (CLI) | payer MEDICARE, BC ==
[~2023-02-26] MED LIST changes: +GASTROGRAFIN SOLUTION 30ML As Ordered ONE; +ISOVUE-370 76% 100ML VIAL As Ordered ONE; +MM S100C PO; +ZOLO100T PO
== END ==
LOC: M RAD 08:43
PROVIDERS: ATTEND Internal Medicine Medical Oncology
DX: K86.2 Cyst of pancreas (principal)
CPT/HCPCS: 74177; Q9963; Q9967

== ENCOUNTER 2023-04-22 20:41 | Inpatient (IN) | payer MEDICARE, BC ==
[~2023-04-22] VITALS: Ht 188 cm; Wt 127.7 kg
[~2023-04-22 20:41] MED LIST changes: -GASTROGRAFIN SOLUTION 30ML As Ordered ONE; -ISOVUE-370 76% 100ML VIAL As Ordered ONE
[2023-04-22] MEDS ORDERED: BOOSTRIX VACCINE (TETANUS/DIPHTH/ACEL. PERTUSSIS) 0.5ML SYR IM.IMMUN ONE (21:05)
[2023-04-22 21:40] LABS: BASO % 0.2 % (0.0-1.0); HEMATOCRIT 43.1 % (42.0-52.0); HEMOGLOBIN 14.3 g/dl (13.5-17.5); LYMPH # 0.4 10^3/uL (1.5-5.0); LYMPH % 3.6 % (24.0-44.0); MEAN CORPUSCULAR HEMOGLOBIN 31.5 pg (27.0-33.0); MEAN CORPUSCULAR HGB CONC 33.2 g/dl (32.0-36.5); MEAN CORPUSCULAR VOLUME 94.9 fl (80.0-96.0); MONO % 9.2 % (2.0-8.0); NEUTROPHILS # 9.7 10^3/uL (1.5-8.5); NEUTROPHILS % 86.6 % (36.0-66.0); PLATELET COUNT, AUTOMATED 132 10^3/uL (150-450); RED BLOOD COUNT 4.54 10^6/uL (4.30-6.10); WHITE BLOOD COUNT 11.2 10^3/uL (4.0-10.0)
[2023-04-22 22:08] LABS: ALBUMIN 3.6 G/DL (3.2-5.2); BILIRUBIN,DIRECT 0.3 MG/DL (<0.4); BILIRUBIN,TOTAL 0.7 MG/DL (0.3-1.2); CALCIUM LEVEL 9.4 MG/DL (8.3-10.6); CREATININE FOR GFR 1.33 MG/DL (0.70-1.30); GLOMERULAR FILTRATION RATE 54.4 (>35); POTASSIUM SERUM 4.9 MMOL/L (3.5-5.1); TOTAL PROTEIN 6.7 G/DL (5.7-8.2)
[2023-04-23] VITALS (18 sets, daily range): BP systolic 94–137; BP diastolic 53–63; TEMP 96.8–100.4; O2SAT 90–100
[2023-04-23 00:51] LABS: ABG BASE EXCESS -2.2 (-2.0-2.0); ABG HCO3 20.8 MMOL/L (22.0-26.0); ABG O2 SATURATION 95.6 % (95.0-99.0); ABG PARTIAL PRESSURE O2 74.4 mmHg (75.0-100.0); ABG STANDARD HCO3 22.6 MMOL/L. (22.0-26.0); ABG TOTAL CO2 21.8 MMOL/L (23.0-31.0); ABG pH (ARTERIAL) 7.445 UNITS (7.350-7.450)
[2023-04-23] MEDS ORDERED: NS 1,000 ML IV SCH (01:45)
[2023-04-23] MEDS ORDERED: ONDANSETRON 4MG 2ML VIAL IV PRN (01:45)
[2023-04-23] MEDS ORDERED: TUMS1000 PO (06:26)
[2023-04-23] MEDS ORDERED: DOCU100C16 PO (06:26)
[2023-04-23] MEDS ORDERED: FLOM0.4C39 PO (06:26)
[2023-04-23] MEDS ORDERED: ZOLO100T PO (06:26)
[2023-04-23] MEDS ORDERED: HOME MED LIST COMPLETE! XX SCH (06:30)
[2023-04-23 08:13] LABS: BLOOD UREA NITROGEN 25 MG/DL (9-23); CALCIUM LEVEL 8.8 MG/DL (8.3-10.6); CARBON DIOXIDE LEVEL 24 MMOL/L (20-31); CHLORIDE LEVEL 110 MMOL/L (98-107); CREATININE FOR GFR 1.11 MG/DL (0.70-1.30); GLOMERULAR FILTRATION RATE > 60.0 (>35); GLUCOSE, FASTING 101 MG/DL (74-106); POTASSIUM SERUM 4.3 MMOL/L (3.5-5.1); SODIUM LEVEL 142 MMOL/L (136-145)
[2023-04-23] MEDS: CALCIUM CARBONATE 500 MG CHEW U/D PO SCH ×2 (08:21→20:52)
[2023-04-23] MEDS: NIRMATRELVIR/RITONAVIR (RENAL) CO-PACK (EUA) PO SCH ×2 (08:21→20:56)
[2023-04-23] MEDS: SERTRALINE 100 MG TAB PO SCH (08:22)
[2023-04-23] MEDS: MULTIVITAMINS/MINERALS THERAP 1 TAB PO SCH (08:22)
[2023-04-23] MEDS: VITAMIN D 1,000 INTERNATIONAL UNITS TABLET PO SCH (08:22)
[2023-04-23] MEDS: oxyBUTYnin *DITROPAN XL* 5 MG TABCR PO SCH (08:23)
[2023-04-23] MEDS ORDERED: NIRMATRELVIR/RITONAVIR (RENAL) CO-PACK (EUA) PO SCH ×2 (09:00)
[2023-04-23] MEDS ORDERED: TAMSULOSIN 0.4 MG CAP PO SCH (09:00)
[2023-04-23] MEDS ORDERED: oxyBUTYnin *DITROPAN XL* 5 MG TABCR PO SCH (09:00)
[2023-04-23] MEDS ORDERED: MIDAZOLAM 5MG 5ML VIAL (FOR CHEST TUBE INSERTIONS) IV STA (09:56)
[2023-04-23] MEDS ORDERED: flumazeniL 0.5MG/5ML VIAL IV STA (09:56)
[2023-04-23] MEDS ORDERED: LIDOCAINE 1% MDV 20ML VIAL SC STA (09:56)
[2023-04-23] MEDS ORDERED: MIDAZOLAM INJ 2MG/2ML VIAL IV STA (10:38)
[2023-04-23] MEDS ORDERED: LEVALBUTEROL 1.25MG 0.5ML CONCENTRATE NEB NEB PRN (12:10)
[2023-04-23] MEDS ORDERED: BISACODYL 10MG SUPP PR PRN (12:10)
[2023-04-23] MEDS ORDERED: PERCOCET 5MG/325MG TAB PO PRN (12:10)
[2023-04-23] MEDS ORDERED: ACETAMINOPHEN TAB 650MG DOSE (2X325MG) PO PRN (12:10)
[2023-04-23] MEDS: KETOROLAC 30 MG/ML 1ML VIAL IV SCH ×2 (13:30→20:53)
[2023-04-23] MEDS: LEVALBUTEROL 1.25MG 0.5ML CONCENTRATE NEB NEB SCH ×2 (14:55→21:24)
[2023-04-23] MEDS: FINASTERIDE 5MG TAB PO SCH (20:52)
[2023-04-23] MEDS: DOCUSATE SODIUM 100MG CAPSULE PO SCH (20:52)
[2023-04-23] MEDS: HEPARIN SOD (PORCINE) 5000UNITS/ML 1ML VIAL/SYRINGE SC SCH (20:52)
[2023-04-23] MEDS: HYDROMORPHONE HCL 0.5 MG/ 0.5 ML SYRINGE IV PRN (22:57)
[2023-04-24] VITALS (7 sets, daily range): BP systolic 84–123; BP diastolic 48–56; TEMP 97.5–98.9; O2SAT 93–100
[2023-04-24] MEDS: KETOROLAC 30 MG/ML 1ML VIAL IV SCH ×4 (01:51→20:17)
[2023-04-24] MEDS: LEVALBUTEROL 1.25MG 0.5ML CONCENTRATE NEB NEB SCH ×4 (01:58→19:35)
[2023-04-24 08:00] LABS: BLOOD UREA NITROGEN 29 MG/DL (9-23); CALCIUM LEVEL 9.3 MG/DL (8.3-10.6); CARBON DIOXIDE LEVEL 26 MMOL/L (20-31); CHLORIDE LEVEL 109 MMOL/L (98-107); CREATININE FOR GFR 1.01 MG/DL (0.70-1.30); GLOMERULAR FILTRATION RATE > 60.0 (>35); GLUCOSE, FASTING 81 MG/DL (74-106); POTASSIUM SERUM 4.5 MMOL/L (3.5-5.1); SODIUM LEVEL 143 MMOL/L (136-145)
[2023-04-24 08:02] LABS: HEMATOCRIT 38.5 % (42.0-52.0); HEMOGLOBIN 12.7 g/dl (13.5-17.5); MEAN CORPUSCULAR HEMOGLOBIN 31.9 pg (27.0-33.0); MEAN CORPUSCULAR VOLUME 96.7 fl (80.0-96.0); PLATELET COUNT, AUTOMATED 108 10^3/uL (150-450); RED BLOOD COUNT 3.98 10^6/uL (4.30-6.10); WHITE BLOOD COUNT 5.9 10^3/uL (4.0-10.0)
[2023-04-24 08:42] LABS: ATYPICAL LYMPH 2 % (0-5); EOSINOPHILS 6 % (0-3); LYMPHOCYTES 11 % (16-44); MONOCYTES 4 % (0-5); NEUTROPHILS 60 % (28-66)
[2023-04-24] MEDS: HEPARIN SOD (PORCINE) 5000UNITS/ML 1ML VIAL/SYRINGE SC SCH ×2 (08:42→20:16)
[2023-04-24 08:43] LABS: PLATELET ESTIMATE DECREASED (NORMAL)
[2023-04-24] MEDS: NIRMATRELVIR/RITONAVIR (RENAL) CO-PACK (EUA) PO SCH ×2 (08:43→20:18)
[2023-04-24] MEDS: MOM 30ML SUSPENSION UDC PO SCH (08:43)
[2023-04-24] MEDS: CALCIUM CARBONATE 500 MG CHEW U/D PO SCH ×2 (08:44→20:17)
[2023-04-24] MEDS: VITAMIN D 1,000 INTERNATIONAL UNITS TABLET PO SCH (08:45)
[2023-04-24] MEDS: PANTOPRAZOLE 40MG TAB (PROTONIX) PO SCH (08:45)
[2023-04-24] MEDS: MULTIVITAMINS/MINERALS THERAP 1 TAB PO SCH (08:45)
[2023-04-24] MEDS: DOCUSATE SODIUM 100MG CAPSULE PO SCH ×2 (08:45→20:17)
[2023-04-24] MEDS: SERTRALINE 100 MG TAB PO SCH (08:47)
[2023-04-24] MEDS: oxyBUTYnin *DITROPAN XL* 5 MG TABCR PO SCH (08:47)
[2023-04-24] MEDS ORDERED: TAMSULOSIN 0.4 MG CAP PO SCH (09:00)
[2023-04-24] MEDS ORDERED: NS 1,000 ML IV ONE (12:50)
[2023-04-24] MEDS: NS 1,000 ML IV SCH (17:30)
[2023-04-24 18:08] LABS: ABG BASE EXCESS 1.5 (-2.0-2.0); ABG HCO3 23.9 MMOL/L (22.0-26.0); ABG O2 SATURATION 88.8 % (95.0-99.0); ABG PARTIAL PRESSURE CO2 31.1 mmHg (35.0-45.0); ABG STANDARD HCO3 25.6 MMOL/L. (22.0-26.0); ABG TOTAL CO2 24.8 MMOL/L (23.0-31.0); ABG pH (ARTERIAL) 7.503 UNITS (7.350-7.450)
[2023-04-24 18:12] LABS: ABG PARTIAL PRESSURE O2 47.8 mmHg (75.0-100.0)
[2023-04-24] MEDS: FINASTERIDE 5MG TAB PO SCH (20:17)
[2023-04-25] VITALS (64 sets, daily range): BP systolic 65–133; BP diastolic 40–72; TEMP 98.2–100.9; O2SAT 87–98
[2023-04-25] MEDS: KETOROLAC 30 MG/ML 1ML VIAL IV SCH ×2 (01:00→06:49)
[2023-04-25] MEDS: LEVALBUTEROL 1.25MG 0.5ML CONCENTRATE NEB NEB SCH ×4 (01:37→19:33)
[2023-04-25 05:18] LABS: HEMATOCRIT 39.7 % (42.0-52.0); HEMOGLOBIN 13.3 g/dl (13.5-17.5); MEAN CORPUSCULAR HEMOGLOBIN 32.4 pg (27.0-33.0); MEAN CORPUSCULAR HGB CONC 33.5 g/dl (32.0-36.5); MEAN CORPUSCULAR VOLUME 96.8 fl (80.0-96.0); PLATELET COUNT, AUTOMATED 121 10^3/uL (150-450); WHITE BLOOD COUNT 4.5 10^3/uL (4.0-10.0)
[2023-04-25 05:39] LABS: BLOOD UREA NITROGEN 36 MG/DL (9-23); CALCIUM LEVEL 9.4 MG/DL (8.3-10.6); CARBON DIOXIDE LEVEL 22 MMOL/L (20-31); CHLORIDE LEVEL 111 MMOL/L (98-107); GLOMERULAR FILTRATION RATE > 60.0 (>35); GLUCOSE, FASTING 101 MG/DL (74-106); POTASSIUM SERUM 4.9 MMOL/L (3.5-5.1); SODIUM LEVEL 144 MMOL/L (136-145)
[2023-04-25 06:48] LABS: ATYPICAL LYMPH 1 % (0-5); BASOPHILS 1 % (0-1); LYMPHOCYTES 20 % (16-44); METAMYELOCYTES 1 % (0-0); MONOCYTES 8 % (0-5); NEUTROPHILS 37 % (28-66); PLASMA CELL 1 % (0-0)
[2023-04-25 06:49] LABS: OVALOCYTES 1+; PLATELET ESTIMATE DECREASED (NORMAL)
[2023-04-25 06:50] LABS: DOHLE BODIES 1+
[2023-04-25] MEDS: PERCOCET 5MG/325MG TAB PO PRN (07:51)
[2023-04-25] MEDS: VITAMIN D 1,000 INTERNATIONAL UNITS TABLET PO SCH (09:00)
[2023-04-25] MEDS ORDERED: METOPROLOL 5 MG/5 ML VIAL IV STA (09:27)
[2023-04-25] MEDS ORDERED: APIXABAN 5 MG TAB (ELIQUIS) PO SCH (09:35)
[2023-04-25] MEDS: SERTRALINE 100 MG TAB PO SCH (10:08)
[2023-04-25] MEDS: MULTIVITAMINS/MINERALS THERAP 1 TAB PO SCH (10:09)
[2023-04-25] MEDS: PANTOPRAZOLE 40MG TAB (PROTONIX) PO SCH (10:09)
[2023-04-25] MEDS: CALCIUM CARBONATE 500 MG CHEW U/D PO SCH ×2 (10:09→20:29)
[2023-04-25] MEDS: MOM 30ML SUSPENSION UDC PO SCH (10:09)
[2023-04-25] MEDS: DOCUSATE SODIUM 100MG CAPSULE PO SCH ×2 (10:10→20:25)
[2023-04-25] MEDS ORDERED: SODIUM CHLORIDE 0.9% 1000ML IV ONE (10:35)
[2023-04-25] MEDS: NS 1,000 ML IV SCH (10:50)
[2023-04-25] MEDS ORDERED: VASOPRESSIN INJ 20UNITS/ML 1ML VIAL As Ordered ONE (11:04)
[2023-04-25] MEDS ORDERED: NOREPINEPHRINE 4MG IN D5 250ML 4 MG in IV 1 EA IV SCH ×2 (11:30)
[2023-04-25] MEDS ORDERED: VASOPRESSIN INJ 20 UNITS in NS 499 ML IV SCH (11:30)
[2023-04-25] MEDS ORDERED: AMIODARONE HCL 150 MG in IV 1 EA IV STA (11:59)
[2023-04-25] MEDS ORDERED: AMIODARONE HCL 150 MG/100 ML PREMIXED BAG (NEXTERONE) As Ordered ONE (12:02)
[2023-04-25] MEDS: PIPERACILLIN/TAZOBACTAM SOD 4.5 GM in D5W MINI-BAG PLUS 50 ML IV SCH ×3 (12:08→22:16)
[2023-04-25] MEDS ORDERED: AMIODARONE HCL 150 MG in IV 1 EA IV ONE (12:25)
[2023-04-25] MEDS ORDERED: AMIODARONE HCL 360 MG in IV 1 EA IV SCH (12:45)
[2023-04-25] MEDS ORDERED: VANCOMYCIN HCL 1,000 MG, VIAL MATE ADAPTER 1 EACH in D5W 250 ML IV ONE (13:00)
[2023-04-25] MEDS: ENOXAPARIN 120MG/0.8ML SYRINGE SC SCH ×2 (13:32→22:16)
[2023-04-25] MEDS ORDERED: NS 1,000 ML IV ONE (16:45)
[2023-04-25] MEDS: VANCOMYCIN HCL 1,000 MG, VIAL MATE ADAPTER 1 EACH in D5W 250 ML IV SCH (19:55)
[2023-04-25] MEDS: VASOPRESSIN INJ 20 UNITS in NS 499 ML IV SCH (19:56)
[2023-04-25] MEDS: METOPROLOL TART 12.5 MG PER 1/2 TAB PO SCH (20:29)
[2023-04-25] MEDS: FINASTERIDE 5MG TAB PO SCH (20:29)
[2023-04-26] VITALS (44 sets, daily range): BP systolic 87–132; BP diastolic 46–74; TEMP 98.1–99.4; O2SAT 91–99
[2023-04-26] MEDS ORDERED: ACETAMINOPHEN *IV* 1,000 MG in IV 1 EA IV ONE (00:30)
[2023-04-26] MEDS: LEVALBUTEROL 1.25MG 0.5ML CONCENTRATE NEB NEB SCH ×4 (01:09→19:20)
[2023-04-26] MEDS: VASOPRESSIN INJ 20 UNITS in NS 499 ML IV SCH (04:04)
[2023-04-26] MEDS: PIPERACILLIN/TAZOBACTAM SOD 4.5 GM in D5W MINI-BAG PLUS 50 ML IV SCH ×4 (04:04→22:17)
[2023-04-26 04:44] LABS: HEMATOCRIT 34.3 % (42.0-52.0); HEMOGLOBIN 11.5 g/dl (13.5-17.5); MEAN CORPUSCULAR HEMOGLOBIN 32.3 pg (27.0-33.0); MEAN CORPUSCULAR HGB CONC 33.5 g/dl (32.0-36.5); MEAN CORPUSCULAR VOLUME 96.3 fl (80.0-96.0); PLATELET COUNT, AUTOMATED 128 10^3/uL (150-450); RED BLOOD COUNT 3.56 10^6/uL (4.30-6.10); WHITE BLOOD COUNT 6.9 10^3/uL (4.0-10.0)
[2023-04-26] MEDS: NS 1,000 ML IV SCH (05:01)
[2023-04-26 05:07] LABS: ATYPICAL LYMPH 1 % (0-5); BLOOD UREA NITROGEN 44 MG/DL (9-23); CALCIUM LEVEL 7.6 MG/DL (8.3-10.6); CARBON DIOXIDE LEVEL 20 MMOL/L (20-31); CHLORIDE LEVEL 113 MMOL/L (98-107); CREATININE FOR GFR 1.18 MG/DL (0.70-1.30); GLOMERULAR FILTRATION RATE > 60.0 (>35); GLUCOSE, FASTING 148 MG/DL (74-106); LYMPHOCYTES 10 % (16-44); MONOCYTES 1 % (0-5); MYELOCYTES 1 % (0-0); NEUTROPHILS 73 % (28-66); PHOSPHORUS LEVEL 2.8 MG/DL (2.4-5.1); POTASSIUM SERUM 4.5 MMOL/L (3.5-5.1); SODIUM LEVEL 142 MMOL/L (136-145)
[2023-04-26 05:08] LABS: PLATELET ESTIMATE DECREASED (NORMAL)
[2023-04-26 05:10] LABS: OVALOCYTES 1+
[2023-04-26 05:11] LABS: DOHLE BODIES 1+
[2023-04-26] MEDS: VANCOMYCIN HCL 1,000 MG, VIAL MATE ADAPTER 1 EACH in D5W 250 ML IV SCH (08:35)
[2023-04-26] MEDS ORDERED: LR 1,000 ML IV SCH (08:45)
[2023-04-26] MEDS: DOCUSATE SODIUM 100MG CAPSULE PO SCH ×2 (09:00→20:09)
[2023-04-26] MEDS: PANTOPRAZOLE 40MG TAB (PROTONIX) PO SCH (09:00)
[2023-04-26] MEDS: MULTIVITAMINS/MINERALS THERAP 1 TAB PO SCH (09:00)
[2023-04-26] MEDS: VITAMIN D 1,000 INTERNATIONAL UNITS TABLET PO SCH (09:00)
[2023-04-26] MEDS: MOM 30ML SUSPENSION UDC PO SCH (09:00)
[2023-04-26] MEDS: METOPROLOL TART 12.5 MG PER 1/2 TAB PO SCH ×2 (09:00→20:09)
[2023-04-26] MEDS: CALCIUM CARBONATE 500 MG CHEW U/D PO SCH ×2 (09:00→20:22)
[2023-04-26] MEDS: ENOXAPARIN 120MG/0.8ML SYRINGE SC SCH ×2 (11:06→22:17)
[2023-04-26] MEDS: SERTRALINE 100 MG TAB PO SCH (11:15)
[2023-04-26] MEDS: HYDROMORPHONE HCL 0.5 MG/ 0.5 ML SYRINGE IV PRN ×2 (17:56→22:18)
[2023-04-26] MEDS ORDERED: DIGOXIN INJ 0.5 MG/2 ML AMP IV ONE (20:05)
[2023-04-26] MEDS: FINASTERIDE 5MG TAB PO SCH (20:22)
[2023-04-27] VITALS: BP 99/58; TEMP 99.5; O2SAT 95
[2023-04-27] MEDS: LEVALBUTEROL 1.25MG 0.5ML CONCENTRATE NEB NEB SCH ×4 (01:20→19:07)
[2023-04-27] MEDS ORDERED: AMIODARONE HCL 360 MG in IV 1 EA IV SCH ×3 (02:00→02:30)
[2023-04-27] MEDS ORDERED: AMIODARONE HCL 150 MG in IV 1 EA IV ONE ×2 (02:10→02:20)
[2023-04-27 04:00] VITALS: BP 95/56; TEMP 97.6; O2SAT 93
[2023-04-27] MEDS: PIPERACILLIN/TAZOBACTAM SOD 4.5 GM in D5W MINI-BAG PLUS 50 ML IV SCH ×3 (04:10→17:18)
[2023-04-27] MEDS: NS 1,000 ML IV SCH (04:11)
[2023-04-27 04:47] LABS: HEMATOCRIT 32.5 % (42.0-52.0); MEAN CORPUSCULAR HEMOGLOBIN 32.1 pg (27.0-33.0); MEAN CORPUSCULAR HGB CONC 33.8 g/dl (32.0-36.5); MEAN CORPUSCULAR VOLUME 94.8 fl (80.0-96.0); PLATELET COUNT, AUTOMATED 123 10^3/uL (150-450); RED BLOOD COUNT 3.43 10^6/uL (4.30-6.10); WHITE BLOOD COUNT 8.8 10^3/uL (4.0-10.0)
[2023-04-27 05:08] LABS: BLOOD UREA NITROGEN 30 MG/DL (9-23); CALCIUM LEVEL 8.2 MG/DL (8.3-10.6); CARBON DIOXIDE LEVEL 22 MMOL/L (20-31); CHLORIDE LEVEL 116 MMOL/L (98-107); CREATININE FOR GFR 0.94 MG/DL (0.70-1.30); GLOMERULAR FILTRATION RATE > 60.0 (>35); GLUCOSE, FASTING 88 MG/DL (74-106); POTASSIUM SERUM 3.7 MMOL/L (3.5-5.1); SODIUM LEVEL 147 MMOL/L (136-145)
[2023-04-27 05:24] LABS: LYMPHOCYTES 9 % (16-44); MONOCYTES 8 % (0-5); NEUTROPHILS 78 % (28-66); PLATELET ESTIMATE DECREASED (NORMAL)
[2023-04-27 05:25] LABS: ANISOCYTOSIS 1+
[2023-04-27] MEDS: HYDROMORPHONE HCL 0.5 MG/ 0.5 ML SYRINGE IV PRN ×2 (06:01→11:00)
[2023-04-27] MEDS ORDERED: D5W 1,000 ML IV SCH (07:40)
[2023-04-27] MEDS: AMIODARONE HCL 360 MG in IV 1 EA IV SCH ×2 (07:54→17:48)
[2023-04-27 08:00] VITALS: BP 116/59; TEMP 99.1; O2SAT 95
[2023-04-27] MEDS: MOM 30ML SUSPENSION UDC PO SCH (08:01)
[2023-04-27] MEDS: DOCUSATE SODIUM 100MG CAPSULE PO SCH ×2 (08:01→21:09)
[2023-04-27] MEDS: METOPROLOL TART 12.5 MG PER 1/2 TAB PO SCH ×2 (09:00→21:09)
[2023-04-27] MEDS: MULTIVITAMINS/MINERALS THERAP 1 TAB PO SCH (09:29)
[2023-04-27] MEDS: CALCIUM CARBONATE 500 MG CHEW U/D PO SCH ×2 (09:29→21:10)
[2023-04-27] MEDS: VITAMIN D 1,000 INTERNATIONAL UNITS TABLET PO SCH (09:29)
[2023-04-27] MEDS: SERTRALINE 100 MG TAB PO SCH (09:29)
[2023-04-27] MEDS: PANTOPRAZOLE 40MG TAB (PROTONIX) PO SCH (09:29)
[2023-04-27] MEDS: ENOXAPARIN 120MG/0.8ML SYRINGE SC SCH (11:00)
[2023-04-27 12:00] VITALS: BP 106/57; TEMP 98.2; O2SAT 94
[2023-04-27] MEDS ORDERED: OLANZapine 2.5MG TABLET PO ONE (15:00)
[2023-04-27 16:00] VITALS: BP 114/62; TEMP 99.2; O2SAT 94
[2023-04-27 19:58] VITALS: BP 142/61; TEMP 100.4; O2SAT 90
[2023-04-27] MEDS: FINASTERIDE 5MG TAB PO SCH (21:09)
[2023-04-27] MEDS: PERCOCET 5MG/325MG TAB PO PRN (22:10)
[2023-04-28] MEDS: ENOXAPARIN 120MG/0.8ML SYRINGE SC SCH ×3 (00:46→23:10)
[2023-04-28] MEDS: PIPERACILLIN/TAZOBACTAM SOD 4.5 GM in D5W MINI-BAG PLUS 50 ML IV SCH ×5 (00:46→23:10)
[2023-04-28] MEDS: HYDROMORPHONE HCL 0.5 MG/ 0.5 ML SYRINGE IV PRN (00:47)
[2023-04-28 00:50] VITALS: BP 100/53; TEMP 98.6; O2SAT 90
[2023-04-28] MEDS: LEVALBUTEROL 1.25MG 0.5ML CONCENTRATE NEB NEB SCH ×4 (02:44→20:27)
[2023-04-28 03:52] VITALS: BP 91/55; TEMP 97.9; O2SAT 90
[2023-04-28 08:00] VITALS: BP 128/60; TEMP 97.4; O2SAT 93
[2023-04-28 08:10] LABS: BASO % 0.3 % (0.0-1.0); EOS # 0.3 10^3/uL (0.0-0.5); HEMATOCRIT 35.5 % (42.0-52.0); HEMOGLOBIN 11.7 g/dl (13.5-17.5); LYMPH # 1.1 10^3/uL (1.5-5.0); LYMPH % 11.2 % (24.0-44.0); MEAN CORPUSCULAR HEMOGLOBIN 31.4 pg (27.0-33.0); MEAN CORPUSCULAR VOLUME 95.2 fl (80.0-96.0); MONO # 0.8 10^3/uL (0.0-0.8); MONO % 7.9 % (2.0-8.0); NEUTROPHILS # 7.3 10^3/uL (1.5-8.5); NEUTROPHILS % 76.1 % (36.0-66.0); PLATELET COUNT, AUTOMATED 141 10^3/uL (150-450); RED BLOOD COUNT 3.73 10^6/uL (4.30-6.10); WHITE BLOOD COUNT 9.6 10^3/uL (4.0-10.0)
[2023-04-28 08:39] LABS: BLOOD UREA NITROGEN 26 MG/DL (9-23); CALCIUM LEVEL 8.2 MG/DL (8.3-10.6); CARBON DIOXIDE LEVEL 24 MMOL/L (20-31); CHLORIDE LEVEL 114 MMOL/L (98-107); CREATININE FOR GFR 1.03 MG/DL (0.70-1.30); GLOMERULAR FILTRATION RATE > 60.0 (>35); GLUCOSE, FASTING 93 MG/DL (74-106); POTASSIUM SERUM 3.6 MMOL/L (3.5-5.1); SODIUM LEVEL 146 MMOL/L (136-145)
[2023-04-28] MEDS ORDERED: TAMSULOSIN 0.4 MG CAP PO SCH (09:00)
[2023-04-28] MEDS ORDERED: oxyBUTYnin *DITROPAN XL* 5 MG TABCR PO SCH (09:00)
[2023-04-28] MEDS: PANTOPRAZOLE 40MG TAB (PROTONIX) PO SCH (09:15)
[2023-04-28] MEDS: VITAMIN D 1,000 INTERNATIONAL UNITS TABLET PO SCH (09:15)
[2023-04-28] MEDS: SERTRALINE 100 MG TAB PO SCH (09:15)
[2023-04-28] MEDS: DOCUSATE SODIUM 100MG CAPSULE PO SCH ×2 (09:15→21:00)
[2023-04-28] MEDS: CALCIUM CARBONATE 500 MG CHEW U/D PO SCH ×2 (09:15→21:00)
[2023-04-28] MEDS: MULTIVITAMINS/MINERALS THERAP 1 TAB PO SCH (09:15)
[2023-04-28] MEDS: MOM 30ML SUSPENSION UDC PO SCH (09:17)
[2023-04-28] MEDS: METOPROLOL TART 12.5 MG PER 1/2 TAB PO SCH ×2 (09:18→21:00)
[2023-04-28 12:00] VITALS: BP 121/59; TEMP 97.5; O2SAT 89
[2023-04-28 16:09] VITALS: BP 146/63; TEMP 97.4; O2SAT 91
[2023-04-28 19:16] VITALS: BP 121/51; TEMP 97.7; O2SAT 86
[2023-04-28] MEDS: FINASTERIDE 5MG TAB PO SCH (21:00)
[2023-04-29] MEDS: LEVALBUTEROL 1.25MG 0.5ML CONCENTRATE NEB NEB SCH ×2 (01:43→07:56)
[2023-04-29 03:40] VITALS: BP 153/70; TEMP 98.1; O2SAT 90
[2023-04-29] MEDS: PIPERACILLIN/TAZOBACTAM SOD 4.5 GM in D5W MINI-BAG PLUS 50 ML IV SCH ×2 (05:24→11:19)
[2023-04-29 05:52] LABS: BASO % 0.4 % (0.0-1.0); EOS # 0.2 10^3/uL (0.0-0.5); EOS % 2.1 % (0.0-3.0); HEMATOCRIT 35.5 % (42.0-52.0); LYMPH # 1.1 10^3/uL (1.5-5.0); LYMPH % 9.4 % (24.0-44.0); MEAN CORPUSCULAR HEMOGLOBIN 31.8 pg (27.0-33.0); MEAN CORPUSCULAR HGB CONC 33.8 g/dl (32.0-36.5); MEAN CORPUSCULAR VOLUME 94.2 fl (80.0-96.0); MONO # 0.8 10^3/uL (0.0-0.8); MONO % 7.4 % (2.0-8.0); NEUTROPHILS # 8.9 10^3/uL (1.5-8.5); NEUTROPHILS % 78.5 % (36.0-66.0); PLATELET COUNT, AUTOMATED 161 10^3/uL (150-450); RED BLOOD COUNT 3.77 10^6/uL (4.30-6.10); WHITE BLOOD COUNT 11.3 10^3/uL (4.0-10.0)
[2023-04-29 06:14] LABS: BLOOD UREA NITROGEN 22 MG/DL (9-23); CALCIUM LEVEL 8.4 MG/DL (8.3-10.6); CARBON DIOXIDE LEVEL 24 MMOL/L (20-31); CHLORIDE LEVEL 115 MMOL/L (98-107); CREATININE FOR GFR 0.98 MG/DL (0.70-1.30); GLOMERULAR FILTRATION RATE > 60.0 (>35); GLUCOSE, FASTING 86 MG/DL (74-106); POTASSIUM SERUM 3.7 MMOL/L (3.5-5.1); SODIUM LEVEL 148 MMOL/L (136-145)
[2023-04-29 06:59] VITALS: BP 137/71; TEMP 97.7; O2SAT 92
[2023-04-29] MEDS: METOPROLOL TART 12.5 MG PER 1/2 TAB PO SCH ×4 (07:38→17:45)
[2023-04-29] MEDS: PANTOPRAZOLE 40MG TAB (PROTONIX) PO SCH (07:39)
[2023-04-29] MEDS: SERTRALINE 100 MG TAB PO SCH (07:39)
[2023-04-29] MEDS: oxyBUTYnin *DITROPAN XL* 5 MG TABCR PO SCH (07:39)
[2023-04-29] MEDS: VITAMIN D 1,000 INTERNATIONAL UNITS TABLET PO SCH (07:40)
[2023-04-29] MEDS: DOCUSATE SODIUM 100MG CAPSULE PO SCH (07:40)
[2023-04-29] MEDS: MULTIVITAMINS/MINERALS THERAP 1 TAB PO SCH (07:40)
[2023-04-29] MEDS: TAMSULOSIN 0.4 MG CAP PO SCH (07:40)
[2023-04-29] MEDS: CALCIUM CARBONATE 500 MG CHEW U/D PO SCH ×2 (07:41→19:55)
[2023-04-29] MEDS: MOM 30ML SUSPENSION UDC PO SCH (07:59)
[2023-04-29] MEDS: APIXABAN 5 MG TAB (ELIQUIS) PO SCH ×2 (11:24→19:55)
[2023-04-29] MEDS ORDERED: D5W 1,000 ML IV SCH (11:45)
[2023-04-29] MEDS ORDERED: ENTER DRUG NAME HERE (PATIENT'S OWN MED) TOP SCH (16:00)
[2023-04-29 17:40] VITALS: BP 119/70; TEMP 98.6; O2SAT 92
[2023-04-29] MEDS: FINASTERIDE 5MG TAB PO SCH (19:55)
[2023-04-29] MEDS: AUGMENTIN 875 MG TAB PO SCH (19:55)
[2023-04-29 22:00] VITALS: BP 115/66; TEMP 98.8; O2SAT 95
[2023-04-30 05:54] VITALS: BP 123/58; TEMP 98.4; O2SAT 92
[2023-04-30 06:21] LABS: BASO % 0.3 % (0.0-1.0); EOS # 0.3 10^3/uL (0.0-0.5); EOS % 2.5 % (0.0-3.0); HEMOGLOBIN 11.5 g/dl (13.5-17.5); LYMPH % 8.4 % (24.0-44.0); MEAN CORPUSCULAR HEMOGLOBIN 31.9 pg (27.0-33.0); MEAN CORPUSCULAR HGB CONC 33.8 g/dl (32.0-36.5); MEAN CORPUSCULAR VOLUME 94.2 fl (80.0-96.0); MONO # 0.9 10^3/uL (0.0-0.8); NEUTROPHILS # 9.1 10^3/uL (1.5-8.5); NEUTROPHILS % 78.8 % (36.0-66.0); PLATELET COUNT, AUTOMATED 180 10^3/uL (150-450); RED BLOOD COUNT 3.61 10^6/uL (4.30-6.10); WHITE BLOOD COUNT 11.6 10^3/uL (4.0-10.0)
[2023-04-30 06:51] LABS: BLOOD UREA NITROGEN 23 MG/DL (9-23); CALCIUM LEVEL 8.6 MG/DL (8.3-10.6); CARBON DIOXIDE LEVEL 26 MMOL/L (20-31); CHLORIDE LEVEL 111 MMOL/L (98-107); CREATININE FOR GFR 0.89 MG/DL (0.70-1.30); GLOMERULAR FILTRATION RATE > 60.0 (>35); GLUCOSE, FASTING 100 MG/DL (74-106); POTASSIUM SERUM 3.7 MMOL/L (3.5-5.1); SODIUM LEVEL 144 MMOL/L (136-145)
[2023-04-30] MEDS: UNRESOLVED PATIENT OWN MED ORDER XX SCH ×2 (07:49→23:36)
[2023-04-30] MEDS: METOPROLOL TART 12.5 MG PER 1/2 TAB PO SCH ×5 (07:50→23:36)
[2023-04-30] MEDS: CALCIUM CARBONATE 500 MG CHEW U/D PO SCH ×2 (08:18→20:49)
[2023-04-30] MEDS: oxyBUTYnin *DITROPAN XL* 5 MG TABCR PO SCH (08:19)
[2023-04-30] MEDS: TAMSULOSIN 0.4 MG CAP PO SCH (08:19)
[2023-04-30] MEDS: SERTRALINE 100 MG TAB PO SCH (08:19)
[2023-04-30] MEDS: AUGMENTIN 875 MG TAB PO SCH ×2 (08:19→20:48)
[2023-04-30] MEDS: MULTIVITAMINS/MINERALS THERAP 1 TAB PO SCH (08:20)
[2023-04-30] MEDS: VITAMIN D 1,000 INTERNATIONAL UNITS TABLET PO SCH (08:20)
[2023-04-30] MEDS: APIXABAN 5 MG TAB (ELIQUIS) PO SCH ×2 (08:20→20:49)
[2023-04-30] MEDS: SALIVA SUBSTITUTE(MOUTHKOTE) BTL MT SCH ×4 (09:00→20:48)
[2023-04-30 15:00] VITALS: BP 126/56; TEMP 97.7; O2SAT 95
[2023-04-30 20:00] VITALS: BP 138/72; TEMP 98.1; O2SAT 93
[2023-04-30] MEDS: FINASTERIDE 5MG TAB PO SCH (20:48)
[2023-04-30] MEDS: diphenhydrAMINE 50MG CAP PO PRN (20:49)
[2023-05-01] MEDS: METOPROLOL TART 12.5 MG PER 1/2 TAB PO SCH ×4 (05:19→19:43)
[2023-05-01 05:37] LABS: HEMATOCRIT 32.9 % (42.0-52.0); HEMOGLOBIN 11.3 g/dl (13.5-17.5)
[2023-05-01 05:38] LABS: BASO % 0.4 % (0.0-1.0); EOS # 0.3 10^3/uL (0.0-0.5); EOS % 2.9 % (0.0-3.0); HEMATOCRIT 33.8 % (42.0-52.0); HEMOGLOBIN 11.1 g/dl (13.5-17.5); MEAN CORPUSCULAR HEMOGLOBIN 31.5 pg (27.0-33.0); MEAN CORPUSCULAR HGB CONC 32.8 g/dl (32.0-36.5); MONO # 0.7 10^3/uL (0.0-0.8); MONO % 7.4 % (2.0-8.0); NEUTROPHILS # 7.4 10^3/uL (1.5-8.5); NEUTROPHILS % 77.6 % (36.0-66.0); PLATELET COUNT, AUTOMATED 194 10^3/uL (150-450); RED BLOOD COUNT 3.52 10^6/uL (4.30-6.10); WHITE BLOOD COUNT 9.5 10^3/uL (4.0-10.0)
[2023-05-01 06:00] VITALS: BP 155/68; TEMP 97.7; O2SAT 90
[2023-05-01 06:00] LABS: BLOOD UREA NITROGEN 23 MG/DL (9-23); CALCIUM LEVEL 8.5 MG/DL (8.3-10.6); CARBON DIOXIDE LEVEL 24 MMOL/L (20-31); CHLORIDE LEVEL 113 MMOL/L (98-107); CREATININE FOR GFR 0.78 MG/DL (0.70-1.30); GLOMERULAR FILTRATION RATE > 60.0 (>35); GLUCOSE, FASTING 92 MG/DL (74-106); POTASSIUM SERUM 3.5 MMOL/L (3.5-5.1); SODIUM LEVEL 146 MMOL/L (136-145)
[2023-05-01 06:41] VITALS: O2SAT 91
[2023-05-01] MEDS: CALCIUM CARBONATE 500 MG CHEW U/D PO SCH ×2 (09:00→19:42)
[2023-05-01] MEDS ORDERED: PANTOPRAZOLE 40MG VIAL IV SCH (09:00)
[2023-05-01] MEDS: MIRALAX *UNIT DOSE* 17GM PACKET PO SCH ×2 (09:28→19:41)
[2023-05-01] MEDS: VITAMIN D 1,000 INTERNATIONAL UNITS TABLET PO SCH (09:28)
[2023-05-01] MEDS: SALIVA SUBSTITUTE(MOUTHKOTE) BTL MT SCH ×4 (09:28→19:44)
[2023-05-01] MEDS: AUGMENTIN 875 MG TAB PO SCH ×2 (09:28→19:42)
[2023-05-01] MEDS: PANTOPRAZOLE 40MG TAB (PROTONIX) PO SCH ×2 (09:29→19:42)
[2023-05-01] MEDS: SERTRALINE 100 MG TAB PO SCH (09:29)
[2023-05-01] MEDS: TAMSULOSIN 0.4 MG CAP PO SCH (09:29)
[2023-05-01] MEDS: MULTIVITAMINS/MINERALS THERAP 1 TAB PO SCH (09:29)
[2023-05-01] MEDS: oxyBUTYnin *DITROPAN XL* 5 MG TABCR PO SCH (09:29)
[2023-05-01] MEDS: KCL 20MEQ IN D5W 1000ML 1,000 ML IV SCH (11:14)
[2023-05-01 11:36] LABS: HEMATOCRIT 32.5 % (42.0-52.0)
[2023-05-01 14:00] VITALS: BP 126/56; TEMP 97.7; O2SAT 93
[2023-05-01 17:47] LABS: HEMOGLOBIN 11.1 g/dl (13.5-17.5)
[2023-05-01 19:32] VITALS: BP 146/52
[2023-05-01] MEDS: diphenhydrAMINE 50MG CAP PO PRN (19:42)
[2023-05-01] MEDS: FINASTERIDE 5MG TAB PO SCH (19:44)
[2023-05-01 19:46] VITALS: BP 146/52; TEMP 97.7; O2SAT 93
[2023-05-02] MEDS: HYDROMORPHONE HCL 0.5 MG/ 0.5 ML SYRINGE IV PRN ×3 (00:53→12:51)
[2023-05-02] MEDS: KCL 20MEQ IN D5W 1000ML 1,000 ML IV SCH (01:04)
[2023-05-02 05:40] VITALS: BP 135/60; TEMP 97.7; O2SAT 93
[2023-05-02 05:41] VITALS: BP 135/60
[2023-05-02] MEDS: METOPROLOL TART 12.5 MG PER 1/2 TAB PO SCH ×2 (05:41→11:09)
[2023-05-02 05:42] LABS: BASO % 0.3 % (0.0-1.0); EOS # 0.3 10^3/uL (0.0-0.5); EOS % 2.4 % (0.0-3.0); HEMATOCRIT 31.8 % (42.0-52.0); HEMOGLOBIN 10.9 g/dl (13.5-17.5); LYMPH # 1.4 10^3/uL (1.5-5.0); LYMPH % 11.1 % (24.0-44.0); MEAN CORPUSCULAR HEMOGLOBIN 32.5 pg (27.0-33.0); MEAN CORPUSCULAR HGB CONC 34.3 g/dl (32.0-36.5); MEAN CORPUSCULAR VOLUME 94.9 fl (80.0-96.0); MONO # 0.9 10^3/uL (0.0-0.8); NEUTROPHILS # 9.9 10^3/uL (1.5-8.5); NEUTROPHILS % 78.3 % (36.0-66.0); PLATELET COUNT, AUTOMATED 226 10^3/uL (150-450); RED BLOOD COUNT 3.35 10^6/uL (4.30-6.10); WHITE BLOOD COUNT 12.7 10^3/uL (4.0-10.0)
[2023-05-02 06:10] LABS: BLOOD UREA NITROGEN 20 MG/DL (9-23); CALCIUM LEVEL 8.2 MG/DL (8.3-10.6); CARBON DIOXIDE LEVEL 20 MMOL/L (20-31); CHLORIDE LEVEL 114 MMOL/L (98-107); CREATININE FOR GFR 0.74 MG/DL (0.70-1.30); GLOMERULAR FILTRATION RATE > 60.0 (>35); GLUCOSE, FASTING 110 MG/DL (74-106); POTASSIUM SERUM 4.2 MMOL/L (3.5-5.1); SODIUM LEVEL 145 MMOL/L (136-145)
[2023-05-02] MEDS: MIRALAX *UNIT DOSE* 17GM PACKET PO SCH ×2 (08:11→20:49)
[2023-05-02] MEDS: CALCIUM CARBONATE 500 MG CHEW U/D PO SCH (08:11)
[2023-05-02] MEDS: VITAMIN D 1,000 INTERNATIONAL UNITS TABLET PO SCH (08:12)
[2023-05-02] MEDS: MULTIVITAMINS/MINERALS THERAP 1 TAB PO SCH (08:12)
[2023-05-02] MEDS: AUGMENTIN 875 MG TAB PO SCH ×2 (08:12→20:49)
[2023-05-02] MEDS: oxyBUTYnin *DITROPAN XL* 5 MG TABCR PO SCH (08:12)
[2023-05-02] MEDS: SERTRALINE 100 MG TAB PO SCH (08:13)
[2023-05-02] MEDS: PANTOPRAZOLE 40MG TAB (PROTONIX) PO SCH ×2 (08:13→20:50)
[2023-05-02] MEDS: TAMSULOSIN 0.4 MG CAP PO SCH (08:13)
[2023-05-02] MEDS: SALIVA SUBSTITUTE(MOUTHKOTE) BTL MT SCH ×4 (08:13→20:49)
[2023-05-02] MEDS: SUCRALFATE SUSP 1GM/10ML UD PO SCH ×2 (11:10→16:44)
[2023-05-02] MEDS: diphenhydrAMINE 50MG CAP PO PRN (12:49)
[2023-05-02 14:00] VITALS: BP 156/77; TEMP 98.4; O2SAT 93
[2023-05-02] MEDS ORDERED: OLANZapine 2.5MG TABLET PO ONE (14:45)
[2023-05-02] MEDS ORDERED: HYOSCYAMINE SULFATE 0.125 MG SUBL TABLET PO PRN (15:00)
[2023-05-02] MEDS ORDERED: ATROPINE SULFATE 1% OPHTH SOLN 2ML BTL SL PRN (15:00)
[2023-05-02] MEDS ORDERED: BISACODYL 10MG SUPP PR PRN (15:00)
[2023-05-02] MEDS: FINASTERIDE 5MG TAB PO SCH (20:49)
[2023-05-02] MEDS: LORazepam 1 MG TAB PO PRN (20:50)
[2023-05-02] MEDS: MORPHINE 10MG/0.5ML ORAL CONCENTRATE SOLUTION U/D SL PRN (20:51)
[2023-05-03] MEDS: LORazepam 1 MG TAB PO PRN ×2 (01:14→12:05)
[2023-05-03] MEDS: MORPHINE 10MG/0.5ML ORAL CONCENTRATE SOLUTION U/D SL PRN ×4 (01:15→16:12)
[2023-05-03] MEDS: SUCRALFATE SUSP 1GM/10ML UD PO SCH ×3 (07:30→16:09)
[2023-05-03] MEDS: AUGMENTIN 875 MG TAB PO SCH ×2 (09:00→20:40)
[2023-05-03] MEDS: PANTOPRAZOLE 40MG TAB (PROTONIX) PO SCH ×2 (09:00→20:40)
[2023-05-03] MEDS: TAMSULOSIN 0.4 MG CAP PO SCH (09:00)
[2023-05-03] MEDS: oxyBUTYnin *DITROPAN XL* 5 MG TABCR PO SCH (09:00)
[2023-05-03] MEDS: SALIVA SUBSTITUTE(MOUTHKOTE) BTL MT SCH ×4 (09:00→20:40)
[2023-05-03] MEDS: MIRALAX *UNIT DOSE* 17GM PACKET PO SCH ×2 (09:00→20:40)
[2023-05-03] MEDS: SCOPOLAMINE 1MG TRANSDERMAL PATCH TOP PRN (11:29)
[2023-05-03] MEDS ORDERED: HYDROMORPHONE HCL 0.5 MG/ 0.5 ML SYRINGE IV PRN (13:10)
[2023-05-03] MEDS ORDERED: PERCOCET 5MG/325MG TAB PO ONE (13:30)
[2023-05-03] MEDS ORDERED: MORPHINE 10MG/0.5ML ORAL CONCENTRATE SOLUTION U/D SL ONE (14:00)
[2023-05-03] MEDS: FINASTERIDE 5MG TAB PO SCH (20:40)
[2023-05-04] MEDS: AUGMENTIN 875 MG TAB PO SCH ×3 (08:31→21:25)
[2023-05-04] MEDS: SUCRALFATE SUSP 1GM/10ML UD PO SCH ×4 (08:31→17:30)
[2023-05-04] MEDS: TAMSULOSIN 0.4 MG CAP PO SCH ×2 (08:31→09:06)
[2023-05-04] MEDS: MIRALAX *UNIT DOSE* 17GM PACKET PO SCH ×3 (08:31→21:00)
[2023-05-04] MEDS: PANTOPRAZOLE 40MG TAB (PROTONIX) PO SCH ×3 (08:31→21:00)
[2023-05-04] MEDS: oxyBUTYnin *DITROPAN XL* 5 MG TABCR PO SCH ×2 (08:31→09:06)
[2023-05-04] MEDS: SALIVA SUBSTITUTE(MOUTHKOTE) BTL MT SCH ×4 (08:36→21:25)
[2023-05-04] MEDS: MORPHINE 10MG/0.5ML ORAL CONCENTRATE SOLUTION U/D SL PRN ×2 (09:07→12:31)
[2023-05-04] MEDS: FINASTERIDE 5MG TAB PO SCH (21:00)
[2023-05-05] MEDS: SALIVA SUBSTITUTE(MOUTHKOTE) BTL MT SCH ×2 (08:52→11:39)
[2023-05-05] MEDS: SUCRALFATE SUSP 1GM/10ML UD PO SCH ×2 (08:52→11:38)
[2023-05-05] MEDS: AUGMENTIN 875 MG TAB PO SCH ×2 (08:52→09:00)
[2023-05-05] MEDS: oxyBUTYnin *DITROPAN XL* 5 MG TABCR PO SCH ×2 (08:53→09:00)
[2023-05-05] MEDS: MIRALAX *UNIT DOSE* 17GM PACKET PO SCH ×2 (08:53→09:00)
[2023-05-05] MEDS: PANTOPRAZOLE 40MG TAB (PROTONIX) PO SCH ×2 (08:53→09:00)
[2023-05-05] MEDS: TAMSULOSIN 0.4 MG CAP PO SCH ×2 (08:53→09:00)
[2023-05-05] MEDS: MORPHINE 10MG/0.5ML ORAL CONCENTRATE SOLUTION U/D SL PRN ×3 (11:38→20:11)
[2023-05-05] MEDS: LORazepam 1 MG TAB PO PRN (11:44)
[2023-05-05] MEDS: LORazepam 2 MG TAB PO PRN ×2 (14:26→20:11)
[2023-05-05] MEDS ORDERED: MIRALAX *UNIT DOSE* 17GM PACKET PO PRN (14:40)
[2023-05-05] MEDS ORDERED: SALIVA SUBSTITUTE(MOUTHKOTE) BTL MT PRN (14:40)
[2023-05-06] MEDS: LORazepam 2 MG TAB PO PRN ×7 (01:41→22:18)
[2023-05-06] MEDS: MORPHINE 10MG/0.5ML ORAL CONCENTRATE SOLUTION U/D SL PRN ×7 (01:41→22:18)
[2023-05-07] MEDS: LORazepam 2 MG TAB PO PRN ×5 (00:23→09:45)
[2023-05-07] MEDS: MORPHINE 10MG/0.5ML ORAL CONCENTRATE SOLUTION U/D SL PRN ×5 (00:25→09:45)
[2023-05-07] MEDS: SCOPOLAMINE 1MG TRANSDERMAL PATCH TOP PRN (10:56)
[2023-05-07] MEDS ORDERED: ACETAMINOPHEN *IV* 1,000 MG in IV 1 EA IV ONE (14:10)
[2023-05-07] MEDS ORDERED: MORPHINE SULF IN 0.9% NACL 100 MG in IV 1 EA IV SCH ×2 (15:00)
== END 2023-05-07 17:29 | disposition expired | DRG 199 ==
LOC: EDBD 20:41 → M ED 20:41 → M ED INP 04-23 01:41 → ENRESERV 04-23 09:13 → M PCU 04-23 10:30 → M ICU 04-25 11:49 → M PCU 04-27 20:00 → M MSPAV 04-28 19:14
PROVIDERS: ADMIT Internal Medicine; ATTEND Internal Medicine
PROC: 0W9930Z Drainage of Right Pleural Cavity with Drainage Device, Percutaneous Approach (ICD-10-PCS; principal; 2023-04-23)
PROC: 2W3AXYZ Immobilization of Right Upper Arm using Other Device (ICD-10-PCS; 2023-04-23)
PROC: 02HV33Z Insertion of Infusion Device into Superior Vena Cava, Percutaneous Approach (ICD-10-PCS; 2023-04-25)
PROC: B246ZZZ Ultrasonography of Right and Left Heart (ICD-10-PCS; 2023-04-27)
DX: S27.0XXA Traumatic pneumothorax, initial encounter (principal); U07.1 COVID-19; G93.41 Metabolic encephalopathy; E87.0 Hyperosmolality and hypernatremia; K92.2 Gastrointestinal hemorrhage, unspecified; J91.8 Pleural effusion in other conditions classified elsewhere; N17.9 Acute kidney failure, unspecified; E87.1 Hypo-osmolality and hyponatremia; Z66 Do not resuscitate; R29.6 Repeated falls; R26.89 Other abnormalities of gait and mobility; F03.90 Unspecified dementia, unspecified severity, without behavioral disturbance, psychotic disturbance, mood disturbance, and anxiety; I71.20 Thoracic aortic aneurysm, without rupture, unspecified; N20.0 Calculus of kidney; S00.11XA Contusion of right eyelid and periocular area, initial encounter; S01.112A Laceration without foreign body of left eyelid and periocular area, initial encounter; W01.0XXA Fall on same level from slipping, tripping and stumbling without subsequent striking against object, initial encounter; Y92.009 Unspecified place in unspecified non-institutional (private) residence as the place of occurrence of the external cause; S42.134A Nondisplaced fracture of coracoid process, right shoulder, initial encounter for closed fracture; K76.9 Liver disease, unspecified; Z79.899 Other long term (current) drug therapy; Z20.822 Contact with and (suspected) exposure to COVID-19; Z90.49 Acquired absence of other specified parts of digestive tract; Z87.891 Personal history of nicotine dependence; Z85.09 Personal history of malignant neoplasm of other digestive organs; Z92.21 Personal history of antineoplastic chemotherapy; I48.0 Paroxysmal atrial fibrillation; D69.6 Thrombocytopenia, unspecified; E86.0 Dehydration; R13.10 Dysphagia, unspecified; H91.90 Unspecified hearing loss, unspecified ear; E66.9 Obesity, unspecified